=== PATIENT | female | born 1950 | race Caucasian/White ===

== ENCOUNTER → 2016-11-09 | Outpatient (CLI) | payer OTHER ==
[~2016-11-09] MED LIST: ACYCLOVIR800 MG PO; ALBUTEROL2.5 MG/0.5 INH; CALCIUM + D 5001 TAB PO; CARDIZEM CD120 MG PO; CARTIA XT240 MG PO; CIPRO500 MG PO; CIPROFLOXACIN500 MG PO; CLARITIN REDITA10 MG PO; CLARITIN10 MG PO; COUMADIN PO; COUMADIN0.5 M1 PO; COUMADIN5 MG PO; Coumadin2 MG PO; DIFLUCAN150 MG PO; FERROUS FUMARA325 MG PO; FISH OIL 10001000 MG PO; FLAGYL500 MG PO; FLONASE ALLERG9.9 ML NAS; FLONASE0.05 MG/AC NS; FLOVENT 220 M220 MCG INH; FOSAMAX70 MG PO; HYDROCODONE BIT1 T11 PO; K-DUR 1010 MEQ PO; KEFLEX500 MG PO; KLOTRIX10 MEQ PO; LISINOPRIL; LOVENOX150 MG/ML SC; MACROBID100 M1 PO; MAXZIDE 50 MG-71 TA1 PO; MIRALAX17 GM/PACK PO; NORVASC5 MG PO; OCUVITE1 TA1 PO; PERCOCET 325 MG1 TA2 PO; PYRIDIUM200 MG PO; Percocet 325 MG1 TAB PO; SINGULAIR10 MG PO; TRAMADOL HCL50 MG PO; TYLENOL ARTHRI650 MG PO; VENTOLIN H0.09 MG/AC IH; VIACTIV CALCIUM1 CTB PO; VITAMIN B1100 MCG/ML IM; VITAMIN B11000 MCG/M IM; VITAMIN D1000 IU PO; ZANTAC150 MG PO; Zestril,Prinivil5 MG PO; [UNRECOGNIZED DRUG - OTHER]
--- NOTE | ~2016-11-09 | PR ---
[place], [place] PROGRESS NOTE NAME: PETE BAUTISTA [facility] #: [id number] UNIT #: [id number] ROOM: DOCTOR: CHANELL THOMPSON M.D. BIRTHDATE: [birth year] DOS: 11/09/2016 CHIEF COMPLAINT: Followup of abdominal wound. HISTORY OF PRESENT ILLNESS: The location is the abdominal wall. It is superficial and related to repeated surgery, morbid obesity, diabetes and pressure related. The wound has been recurrent, it had healed fairly quickly in the past and has reopens since August. She came to the wound clinic just last week for the first time for this new ulceration. The wound was debrided last week and she was placed in a collagen dressing as well as foam. She says she is not having any complaints. She thinks that the wound is healing quite nicely. She does notice that if the wound is not covered, she does tend to pick at it even without realizing it. She has several other places along her abdomen that she does frequently pick out, which lead to chronic wounds. PHYSICAL EXAMINATION: She is afebrile, pulse is 76, respirations 18, blood pressure is 138/78. The wound is measuring 0.4 x 0.2 x 0.1. There is a lot of healing, a lot of new epithelial tissue. There is no visible necrotic tissue, no purulence or tenderness or cellulitis noted. Debridement was not done today. ASSESSMENT AND PLAN: Recurrent abdominal wound secondary to multiple abdominal surgeries. The wound is healing quite nicely. At this point, I would continue with a collagen dressing and a foam over this so to protect it and have her follow up in 1 week. CHANELL THOMPSON MD CM:ELENA 07 [phone] CHANELL THOMPSON M.D. 11/09/161956 interface
== END ==
LOC: WOUNDCARE 01:21
DX: E11.622 Type 2 diabetes mellitus with other skin ulcer (principal); L98.491 Non-pressure chronic ulcer of skin of other sites limited to breakdown of skin; E66.01 Morbid (severe) obesity due to excess calories

== ENCOUNTER → 2016-11-20 | Outpatient (CLI) | payer OTHER ==
[2016-11-20 07:27] LABS: BASO # 0.1 10*3/uL (0.0-0.1); BASO % 0.7 % (0.0-1.0); EOS # 0.3 10*3/uL (0.0-0.4); EOS % 3.8 % (1.0-4.0); HEMATOCRIT 39.3 % (37.0-47.0); HEMOGLOBIN 12.2 g/dl (12.0-16.0); LYMPH # 0.8 10*3/uL (1.3-4.4); MEAN CELL VOLUME 90.1 fl (81.0-99.0); MEAN PLATELET VOLUME 11.9 fl (9.6-12.3); MONO # 0.7 10*3/uL (0.1-1.0); MONO % 10.1 % (3.0-9.0); NEUT # 5.4 10*3/uL (2.3-7.9); PLATELET COUNT AUTOMATED 218 10*3/uL (130-400); RED BLOOD COUNT 4.36 10*6/uL (4.10-5.10); RED CELL DISTRI WIDTH 14.6 % (0-14.5); WHITE BLOOD COUNT 7.4 10*3/uL (4.8-10.8)
[2016-11-20 07:56] LABS: ALBUMIN 3.2 gm/dl (3.1-4.5); ALKALINE PHOSPHATASE 66 U/L (45-117); BILIRUBIN, TOTAL 0.5 mg/dl (0.2-1.0); BUN 20 mg/dl (7-24); CARBON DIOXIDE 34 mmol/L (21-32); CHLORIDE 103 mmol/L (98-107); CHOLESTEROL 98 mg/dL (<200); EST GLOM FILT AFRICAN AMERICAN > 60 ml/min; GLUCOSE 95 mg/dL (65-99); HDL CHOLESTEROL 67 mg/dl (40-60); LDL CHOLESTEROL 19 mg/dL (9-159); POTASSIUM 3.8 mmol/L (3.5-5.1); SGOT/AST 17 IU/L (3-35); SGPT/ALT 15 U/L (12-78); SODIUM 144 mmol/L (136-145); TOTAL PROTEIN 6.7 gm/dL (6.4-8.2); TRIGLYCERIDES 61 mg/dl (<150); VLDL CHOLESTEROL 12 mg/dL (6-40)
[2016-11-20 08:09] LABS: INTERNATIONAL NORM RATIO 1.8 (2.0-3.5); PROTHROMBIN TIME 19.2 SECONDS (9.0-12.4)
== END | disposition home or self-care (01) ==
LOC: LAB 06:48
PROVIDERS: Nurse Practitioner Family
DX: I10 Essential (primary) hypertension (principal); M81.8 Other osteoporosis without current pathological fracture; Z79.01 Long term (current) use of anticoagulants; E78.4 Other hyperlipidemia; R73.01 Impaired fasting glucose

== ENCOUNTER → 2016-11-21 | Outpatient (CLI) | payer OTHER ==
[2016-11-21 08:59] LABS: BILIRUBIN NEGATIVE (NEGATIVE); BLOOD NEGATIVE (NEGATIVE); CLARITY CLEAR (CLEAR); COLOR YELLOW (YELLOW); GLUCOSE NEGATIVE (NEGATIVE); KETONE NEGATIVE (NEGATIVE); LEUKO ESTERASE 1+ (NEGATIVE); NITRITE NEGATIVE (NEGATIVE); PROTEIN NEGATIVE (NEGATIVE)
[2016-11-21 09:16] LABS: BACTERIA TRACE
== END | disposition home or self-care (01) ==
LOC: LAB 08:44
PROVIDERS: Nurse Practitioner Family
DX: I10 Essential (primary) hypertension (principal); M81.8 Other osteoporosis without current pathological fracture; E78.4 Other hyperlipidemia; R73.01 Impaired fasting glucose; Z79.01 Long term (current) use of anticoagulants

== ENCOUNTER → 2016-11-29 | Outpatient (CLI) | payer OTHER ==
--- NOTE | ~2016-11-29 | EKG ---
[place], [place] ELECTROCARDIOGRAM REPORT NAME: PETE BAUTISTA UNIT #: [id number] ROOM: DOCTOR: VINI CONNOR MD BIRTHDATE: [birth year] DOS: 11/29/2016 TIME: 0922 hours. Atrial fibrillation with ventricular rate of 73 beats per minute. Low voltage in limb leads. Poor R-wave progression is present that is suggestive of an old anteroseptal myocardial infraction. An abnormal ECG. No previous tracing is available for comparison. VINI CONNOR MD CM:EKGRPT:ELECTROCARDIOGRAM REPORT 24 VINI CONNOR MD
== END ==
LOC: CARD 09:14
DX: I10 Essential (primary) hypertension (principal); I48.91 Unspecified atrial fibrillation

== ENCOUNTER → 2017-02-12 | Outpatient (CLI) | payer OTHER ==
[2017-02-12 07:19] LABS: BASO % 0.5 % (0.0-1.0); EOS # 0.2 10*3/uL (0.0-0.4); EOS % 2.5 % (1.0-4.0); HEMOGLOBIN 11.9 g/dl (12.0-16.0); LYMPH # 0.7 10*3/uL (1.3-4.4); LYMPH % 8.5 % (27.0-41.0); MEAN CELL VOLUME 89.6 fl (81.0-99.0); MEAN CORPUSCULAR HGB 28.1 pg (27.0-31.0); MEAN CORPUSCULAR HGB CONC 31.3 g/dl (33.0-37.0); MEAN PLATELET VOLUME 11.8 fl (9.6-12.3); MONO # 0.9 10*3/uL (0.1-1.0); MONO % 10.5 % (3.0-9.0); NEUT # 6.5 10*3/uL (2.3-7.9); NEUT % 77.8 % (47.0-73.0); PLATELET COUNT AUTOMATED 216 10*3/uL (130-400); RED BLOOD COUNT 4.24 10*6/uL (4.10-5.10); WHITE BLOOD COUNT 8.4 10*3/uL (4.8-10.8)
[2017-02-12 07:58] LABS: ALBUMIN 3.4 gm/dl (3.1-4.5); ALKALINE PHOSPHATASE 71 U/L (45-117); BILIRUBIN, TOTAL 0.7 mg/dl (0.2-1.0); BUN 15 mg/dl (7-24); CARBON DIOXIDE 34 mmol/L (21-32); CHLORIDE 104 mmol/L (98-107); CHOLESTEROL 101 mg/dL (<200); EST GLOM FILT AFRICAN AMERICAN > 60 ml/min; GLUCOSE 95 mg/dL (65-99); HDL CHOLESTEROL 63 mg/dl (40-60); LDL CHOLESTEROL 22 mg/dL (9-159); POTASSIUM 3.5 mmol/L (3.5-5.1); SGOT/AST 19 IU/L (3-35); SGPT/ALT 16 U/L (12-78); SODIUM 141 mmol/L (136-145); TOTAL PROTEIN 6.9 gm/dL (6.4-8.2); TRIGLYCERIDES 81 mg/dl (<150); VLDL CHOLESTEROL 16 mg/dL (6-40)
[2017-02-12 08:04] LABS: HEMOGLOBIN A1c 5.9 % (4.8-5.6)
== END ==
LOC: LAB 06:48
PROVIDERS: Nurse Practitioner Family
DX: E11.9 Type 2 diabetes mellitus without complications (principal); E55.9 Vitamin D deficiency, unspecified; I10 Essential (primary) hypertension; E78.5 Hyperlipidemia, unspecified

== ENCOUNTER → 2017-04-18 | Outpatient (CLI) | payer OTHER ==
--- NOTE | ~2017-04-18 | PR ---
[place], [place] PROGRESS NOTE NAME: PETE BAUTISTA [facility] #: [id number] UNIT #: [id number] ROOM: DOCTOR: DONNA JuanCHANELL BIRTHDATE: [birth year] DOS: 04/18/2017 This is a new patient evaluation. The patient comes in as a new patient for wound care. She has been seen here in the clinic before. I have seen her on a few separate occasions where she has come for abdominal wound. CHIEF COMPLAINT: She comes in for recurrent abdominal wounds as chief complaint presently. HISTORY OF PRESENT ILLNESS: She is a 67-year-old female with a history of morbid obesity who had a gastric bypass surgery in 2002. She is a type 2 diabetic. She had an abdominal hernia; she had a repair of that back in 2010 and postoperatively had postoperative wound that just did not heal. She has been seen in the wound clinic by Dr. Lane and had reexploration of the area, mesh removal and eventually had removal of a large area of infected mesh back in 2012 by a plastic surgeon, Dr. Wilson, from [facility]. In any case, I have seen her before; the last time I saw her was back in October, where she had an abdominal wound that was on a surgical scar that also appeared to be somewhat pressure related. The wound did heal fairly quickly, but apparently has reopened. She says she has had it for a couple of months now. She has been using some Neosporin on it, but it has not gotten any better. PAST MEDICAL HISTORY: Significant for atrial fibrillation, on chronic Coumadin therapy; hypertension; morbid obesity, close to 400 pounds; type 2 diabetes, diet controlled; GERD; osteoarthritis; gout; osteoporosis; COPD; emphysema; sleep apnea, she is on a BiPAP machine. PAST SURGICAL HISTORY: She is status post tummy tuck repair, hernia repair, gastric bypass, and cholecystectomy. FAMILY HISTORY: Positive for cancer in her father, hypertension in her mother, lung disease in her mother, diabetes in her mother, seizure disorder in her mother, heart disease in her mother, and stroke in her maternal grandparents. SOCIAL HISTORY: She is a former smoker. She is . She does not drink alcohol. CURRENT MEDICATIONS: Coumadin 4 mg daily, loratadine 10 mg daily, Zocor 10 daily, Ventolin HFA 90 mcg inhalation daily, Symbicort 160 mcg/4.5 mcg daily, Cartia XT 240 daily, Norvasc 5 daily, calcium 500 plus D two tablets twice a day, ranitidine 150 mg twice a day, Ferrex 150 mg daily, Singulair 10 mg daily, Ocuvite multivitamin daily, low-dose aspirin 81 daily, potassium chloride 10 mEq daily, triamterene hydrochlorothiazide 75/50 one tablet daily, and vitamin D3 2000 units daily. ALLERGIES: OXYCODONE. REVIEW OF SYSTEMS: She denies any fevers or chills. There is minimal drainage [place], [place] PROGRESS NOTE NAME: PETE BAUTISTA UNIT #: [id number] ROOM: DOCTOR: CHANELL THOMPSON M.D. BIRTHDATE: [birth year] with the wounds. She is not really keeping up covered. She does state that one of the wounds appears to cause discomfort and seems to be rubbing against her underwear at night. She has a lot of irritation around the area of the abdomen where her umbilicus would be and has scratched it in the middle of the night and it bleeds during the day, sometimes after she has been scratching it unintentionally. She denies any chest pain. She has chronic dyspnea on exertion; she sees and follows up with Pulmonology for this. No nausea or vomiting. She has been told her sugars are controlled. She did say her appetite has not been as good lately secondary to the heat. She denies any blood in her stools. She does complain of some groin discomfort. She says that she has noticed this since the wound has been open for a couple of months now. She has 2 areas that are open; one in the middle of the abdomen and is on a surgical scar and the other one is on the left lower quadrant under the pannus formation. OBJECTIVE: VITAL SIGNS: Stable. Temperature 98.3, pulse of 76, respirations 18, blood pressure is 134/68. GENERAL: This is a morbidly obese female who appears older than her stated age, chronically ill and debilitated, in no acute distress. HEENT: Her oropharynx is clear. Extraocular movements are intact. Sclerae are anicteric. NECK: There is no JVD. LUNGS: Clear to auscultation. CARDIOVASCULAR: S1, S2 irregularly irregular. ABDOMEN: Morbidly obese. She has 2 open ulcers located on the abdomen; one is located in the midline and it is on a surgical scar, the wound edges are fibrotic, it is measuring 0.5 x 1.5 x 0.1. This wound seems to be a recurrent wound. There is minimal fibrin slough present. It does not appear to be acutely infected. Medial to that, there is an area of excoriation from chronic pruritus, looks like the patient has been scratching and that is noted. On the left lower quadrant, underneath the pannus formation, is a small ulcer, which is measuring 0.5 x 0.5 x 0.1. There is minimal fibrin slough present. The surrounding area has the appearance of a chronic pressure ulcer. She complains of groin pain; I palpated the groin area and I do not appreciate any lymph nodes. I can palpate the femoral pulse. There is no cellulitis there. I do not see any wound in the groin area at this time. Debridement was done of both of these wounds. The tissue removed was fibrin slough and subcutaneous tissue. There was a moderate amount of bleeding that was controlled with pressure. The patient tolerated the debridements well. The post-debridement measurements on the midline abdominal wound is 0.5 x 1.5 x 0.2 in depth. The other wound on the left lower quadrant is 0.6 x 0.5 x 0.1. The patient tolerated the debridement well. Instrument used was a curette. ASSESSMENT AND PLAN: Recurrent ulcerations of the abdominal wall. I believe that these are pressure-related ulcers. At this point, there is one that is along the surgical scar as well, which is a recurrent ulceration. We will use a collagen silver dressing for now and cover with the foam. This, hopefully, will pad and protect the area a little bit more from rubbing and excoriation. I [place], [place] PROGRESS NOTE [facility]: [facility] [id number] UNIT #: [id number] ROOM: DOCTOR: CHANELL THOMPSON M.D. BIRTHDATE: [birth year] would like to use Calazime on the area medial to that where she has been scratching. We will have check her blood work; she has not had blood work for a couple of months now. I did explain that if the wound does not seem to be healing, we may want to biopsy it, but for now, this has healed before, so we will continue wound care and see how she responds. Collagen dressing will be recommended. Follow up in 1 week. CHANELL THOMPSON MD CM:ELENA [phone] CHANELL THOMPSON M.D. 04/18/17 1801 interface
== END ==
LOC: WOUNDCARE 02:57
DX: E11.622 Type 2 diabetes mellitus with other skin ulcer (principal); L98.491 Non-pressure chronic ulcer of skin of other sites limited to breakdown of skin; E66.01 Morbid (severe) obesity due to excess calories; I10 Essential (primary) hypertension; K21.9 Gastro-esophageal reflux disease without esophagitis; I48.91 Unspecified atrial fibrillation; M19.90 Unspecified osteoarthritis, unspecified site; M81.0 Age-related osteoporosis without current pathological fracture; J43.9 Emphysema, unspecified; Z79.01 Long term (current) use of anticoagulants; Z87.891 Personal history of nicotine dependence

== ENCOUNTER → 2017-04-19 | Outpatient (CLI) | payer OTHER ==
[2017-04-19 07:21] LABS: BASO # 0.1 10*3/uL (0.0-0.1); BASO % 0.7 % (0.0-1.0); EOS # 0.3 10*3/uL (0.0-0.4); HEMATOCRIT 38.7 % (37.0-47.0); LYMPH # 1.1 10*3/uL (1.3-4.4); LYMPH % 15.3 % (27.0-41.0); MEAN CELL VOLUME 88.2 fl (81.0-99.0); MEAN CORPUSCULAR HGB 27.3 pg (27.0-31.0); MEAN PLATELET VOLUME 11.9 fl (9.6-12.3); MONO # 0.8 10*3/uL (0.1-1.0); MONO % 11.3 % (3.0-9.0); NEUT % 68.3 % (47.0-73.0); PLATELET COUNT AUTOMATED 206 10*3/uL (130-400); RED BLOOD COUNT 4.39 10*6/uL (4.10-5.10); RED CELL DISTRI WIDTH 14.7 % (0-14.5); WHITE BLOOD COUNT 7.3 10*3/uL (4.8-10.8)
[2017-04-19 07:42] LABS: ALBUMIN 3.4 gm/dl (3.1-4.5); ALKALINE PHOSPHATASE 80 U/L (45-117); BILIRUBIN, TOTAL 0.4 mg/dl (0.2-1.0); BUN 19 mg/dl (7-24); CARBON DIOXIDE 33 mmol/L (21-32); CHLORIDE 103 mmol/L (98-107); EST GLOM FILT AFRICAN AMERICAN > 60 ml/min; GLUCOSE 86 mg/dL (65-99); POTASSIUM 3.5 mmol/L (3.5-5.1); PREALBUMIN 14 mg/dl (20-40); SGOT/AST 18 IU/L (3-35); SGPT/ALT 16 U/L (12-78); SODIUM 143 mmol/L (136-145)
[2017-04-19 07:49] LABS: HEMOGLOBIN A1c 5.9 % (4.8-5.6)
== END | disposition home or self-care (01) ==
LOC: LAB 06:51
DX: K25.9 Gastric ulcer, unspecified as acute or chronic, without hemorrhage or perforation (principal); Z79.899 Other long term (current) drug therapy

== ENCOUNTER → 2017-04-25 | Outpatient (CLI) | payer OTHER ==
--- NOTE | ~2017-04-25 | PR ---
[place], [place] PROGRESS NOTE NAME: PETE BAUTISTA UNIT #: [id number] ROOM: DOCTOR: DONNA JuanCHANELL BIRTHDATE: [birth year] DOS: 04/25/2017 CHIEF COMPLAINT: Followup of abdominal wound. HISTORY OF PRESENT ILLNESS: A 67-year-old female with a history of recurrent abdominal wounds that appear to be pressure related as well as postoperatively related. She has been coming to the wound clinic for 1 week now and the wounds are looking really good. She has no specific complaints other than she does not have enough money to afford the dressings that we had recommended. So she will need us to recommend a different type of dressing for her. OBJECTIVE: Her vital signs are as follows, afebrile, pulse is 70, respirations 18, and blood pressure is 108/68. The wound in the midline is healed but epithelialized completely. The wound on the left lower quadrant has improved quite a bit and is measuring much smaller 0.3 x 0.3 x 0.1. It is partial thickness. There is a minimal necrotic tissue present. Selective debridement was done. The tissue was removed with fibrin and slough only. Curette was utilized. Cetacaine spray was used for topical anesthesia. Post-debridement measurements are unchanged. There was minimal bleeding that was controlled with pressure. The patient tolerated the procedure well. Her blood work was done and we reviewed it with the patient. Her CBC was within normal limits. Glucose was 123. Hemoglobin A1c was good at 5.9. LFTs were normal. Her prealbumin was slightly low at 14. I did discuss considering to increase her protein intake, perhaps Boost or Ensure once a day would be helpful. She can discuss this with her primary care physician. We will make sure that PCP gets the results. ASSESSMENT AND PLAN: Recurrent abdominal wounds secondary to pressure. They are healing well. We will continue with collagen dressing and foam for today. However, when she needs to change it on her own, she will need to use either 2 x 2s and tape or 2 x 2 with Band-Aid perhaps waterproof Band-Aid would be a good to keep the dressing in place. Followup in one week. [place], [place] PROGRESS NOTE NAME: PETE BAUTISTA UNIT #: [id number] ROOM: DOCTOR: CHANELL THOMPSON M.D. BIRTHDATE: [birth year] CHANELL THOMPSON MD CM:PNROBERT 5 [phone] CHANELL THOMPSON M.D. 04/25/17924 interface
== END ==
LOC: WOUNDCARE 00:16
DX: L89.893 Pressure ulcer of other site, stage 3 (principal); E66.9 Obesity, unspecified; I48.91 Unspecified atrial fibrillation; E11.9 Type 2 diabetes mellitus without complications

== ENCOUNTER → 2017-05-02 | Outpatient (CLI) | payer OTHER | LOC: WOUNDCARE 03:27 | DX: E11.622 Type 2 diabetes mellitus with other skin ulcer (principal); L89.893 Pressure ulcer of other site, stage 3; E66.01 Morbid (severe) obesity due to excess calories ==

== ENCOUNTER 2017-05-17 09:24 | Inpatient (IN) | payer OTHER ==
[~2017-05-17] VITALS: Ht 168 cm; Wt 146.5 kg
[~2017-05-17 09:24] MED LIST changes: -ASPIRIN CHEWABL81 MG PO; -DILTIAZEM HYDR180 M2 PO; -LASIX40 MG PO; -LEVAQUIN500 M2 PO; -METOPROLOL TART50 M1 PO; -NATURE'S BLEN2000 IU PO; -OYSTER SHELL CA1 T17 PO; -PREDNISONE50 MG PO; -SIMVASTATIN10 MG PO; -SINGULAIR10 M1 PO; -SYMBICORT1 AE1 INH
[2017-05-17 09:29] VITALS: BP 131/69
[2017-05-17] MEDS ORDERED: SIMVASTATIN10 MG PO (09:34)
[2017-05-17] MEDS ORDERED: ASPIRIN CHEWABL81 MG PO (09:35)
[2017-05-17 10:10] VITALS: BP 129/52
[2017-05-17 10:15] LABS: BASO % 0.3 % (0.0-1.0); EOS # 0.2 10*3/uL (0.0-0.4); EOS % 1.5 % (1.0-4.0); HEMOGLOBIN 11.9 g/dl (12.0-16.0); IG # 0.1 10*3/uL (0.0-0.1); LYMPH # 0.6 10*3/uL (1.3-4.4); LYMPH % 4.8 % (27.0-41.0); MEAN CELL VOLUME 88.2 fl (81.0-99.0); MEAN CORPUSCULAR HGB 27.6 pg (27.0-31.0); MEAN CORPUSCULAR HGB CONC 31.3 g/dl (33.0-37.0); MEAN PLATELET VOLUME 11.9 fl (9.6-12.3); MONO # 1.2 10*3/uL (0.1-1.0); NEUT # 9.9 10*3/uL (2.3-7.9); PLATELET COUNT AUTOMATED 226 10*3/uL (130-400); RED BLOOD COUNT 4.31 10*6/uL (4.10-5.10)
[2017-05-17 10:22] LABS: INTERNATIONAL NORM RATIO 2.4 (2.0-3.5); PROTHROMBIN TIME 27.3 SECONDS (9.0-12.4)
[2017-05-17 10:32] LABS: ALBUMIN 2.9 gm/dl (3.1-4.5); ALKALINE PHOSPHATASE 68 U/L (45-117); BILIRUBIN, TOTAL 0.7 mg/dl (0.2-1.0); BUN 21 mg/dl (7-24); CARBON DIOXIDE 28 mmol/L (21-32); CHLORIDE 99 mmol/L (98-107); EST GLOM FILT AFRICAN AMERICAN > 60 ml/min; GLUCOSE 123 mg/dL (65-99); POTASSIUM 2.9 mmol/L (3.5-5.1); SGOT/AST 14 IU/L (3-35); SGPT/ALT 13 U/L (12-78); SODIUM 138 mmol/L (136-145); TOTAL PROTEIN 7.2 gm/dL (6.4-8.2)
[2017-05-17 10:43] LABS: TROPONIN I < 0.015 ng/ml (<0.045)
[2017-05-17 10:47] LABS: BILIRUBIN NEGATIVE (NEGATIVE); BLOOD TRACE-INTACT (NEGATIVE); CLARITY CLOUDY (CLEAR); COLOR YELLOW (YELLOW); GLUCOSE NEGATIVE (NEGATIVE); KETONE NEGATIVE (NEGATIVE); LEUKO ESTERASE 3+ (NEGATIVE); NITRITE POSITIVE (NEGATIVE); PH 5.5 (5.0-9.0); PROTEIN NEGATIVE (NEGATIVE)
[2017-05-17 10:58] LABS: BACTERIA 4+; EPITHELIAL CELLS 15-20; URINE REFLEX COMMENT YES (NO); WBC TNTC wbc/hpf (0-5)
[2017-05-17 12:40] VITALS: BP 124/61
[2017-05-17 13:00] VITALS: BP 124/62
[2017-05-17] MEDS ORDERED: SYMBICORT1 AE1 INH (13:02)
[2017-05-17] MEDS ORDERED: SINGULAIR10 M1 PO (13:02)
[2017-05-17 16:00] VITALS: BP 135/72
[2017-05-17 18:11] LABS: CKMB < 0.5 ng/ml (0.5-3.6); CPK 40 U/L (26-192)
[2017-05-17 20:48] VITALS: BP 133/76
[2017-05-18] VITALS: BP 133/68
[2017-05-18 00:42] LABS: CPK 40 U/L (26-192)
[2017-05-18 00:44] LABS: CKMB < 0.5 ng/ml (0.5-3.6)
[2017-05-18 06:16] LABS: HEMATOCRIT 34.9 % (37.0-47.0); MEAN CELL VOLUME 86.4 fl (81.0-99.0); MEAN CORPUSCULAR HGB 27.2 pg (27.0-31.0); MEAN CORPUSCULAR HGB CONC 31.5 g/dl (33.0-37.0); MEAN PLATELET VOLUME 12.4 fl (9.6-12.3); PLATELET COUNT AUTOMATED 217 10*3/uL (130-400); RED BLOOD COUNT 4.04 10*6/uL (4.10-5.10); RED CELL DISTRI WIDTH 14.7 % (0-14.5); WHITE BLOOD COUNT 12.8 10*3/uL (4.8-10.8)
[2017-05-18 06:37] LABS: LYMPHOCYTE # 0.3 10*3/uL (1.3-4.4); MONOCYTE # 0.8 10*3/uL (0.1-1.0); NEUTROPHIL # 11.8 10*3/uL (2.3-7.9); NEUTROPHILS 92 % (47-73); TOTAL CELLS COUNTED 100 #CELLS
[2017-05-18 06:38] LABS: PLATELET SUFFICIENCY NORMAL (NORMAL)
[2017-05-18 06:40] LABS: HEMOGLOBIN A1c 6.2 % (4.8-5.6); INTERNATIONAL NORM RATIO 2.8 (2.0-3.5); PROTHROMBIN TIME 31.3 SECONDS (9.0-12.4)
[2017-05-18 06:42] LABS: BUN 22 mg/dl (7-24); CARBON DIOXIDE 26 mmol/L (21-32); CHLORIDE 98 mmol/L (98-107); EST GLOM FILT AFRICAN AMERICAN > 60 ml/min; GLUCOSE 211 mg/dL (65-99); MAGNESIUM 1.6 mg/dL (1.5-2.1); POTASSIUM 3.4 mmol/L (3.5-5.1); SODIUM 137 mmol/L (136-145)
[2017-05-18 06:47] LABS: CPK 39 U/L (26-192)
[2017-05-18 06:49] LABS: CKMB < 0.5 ng/ml (0.5-3.6)
[2017-05-18 06:51] LABS: VITAMIN D, 25-HYDROXY 33.7 ng/mL (30-100)
[2017-05-18 06:52] LABS: FOLIC ACID > 24.00 ng/mL (>5.38)
[2017-05-18 06:54] LABS: CHOLESTEROL 93 mg/dL (<200); FREE T4 1.49 ng/dl (0.76-1.46); HDL CHOLESTEROL 50 mg/dl (40-60); LDL CHOLESTEROL 32 mg/dL (9-159); PHOSPHOROUS 3.1 mg/dL (2.5-4.9); TRIGLYCERIDES 55 mg/dl (<150); VLDL CHOLESTEROL 11 mg/dL (6-40)
[2017-05-18 08:00] VITALS: BP 142/70
[2017-05-18 12:00] VITALS: BP 137/72
[2017-05-18 16:00] VITALS: BP 136/67
[2017-05-18 20:00] VITALS: BP 131/66
[2017-05-19] VITALS: BP 114/63
[2017-05-19] MEDS ORDERED: OYSTER SHELL CA1 T17 PO (01:12)
[2017-05-19] MEDS ORDERED: NATURE'S BLEN2000 IU PO (01:15)
[2017-05-19 05:58] LABS: HEMATOCRIT 34.7 % (37.0-47.0); MEAN CELL VOLUME 87.4 fl (81.0-99.0); MEAN CORPUSCULAR HGB 27.7 pg (27.0-31.0); MEAN CORPUSCULAR HGB CONC 31.7 g/dl (33.0-37.0); MEAN PLATELET VOLUME 11.9 fl (9.6-12.3); PLATELET COUNT AUTOMATED 242 10*3/uL (130-400); RED BLOOD COUNT 3.97 10*6/uL (4.10-5.10); RED CELL DISTRI WIDTH 14.9 % (0-14.5); WHITE BLOOD COUNT 16.7 10*3/uL (4.8-10.8)
[2017-05-19 06:31] LABS: BUN 27 mg/dl (7-24); CARBON DIOXIDE 30 mmol/L (21-32); CHLORIDE 99 mmol/L (98-107); EST GLOM FILT AFRICAN AMERICAN > 60 ml/min; GLUCOSE 211 mg/dL (65-99); POTASSIUM 3.7 mmol/L (3.5-5.1); SODIUM 138 mmol/L (136-145)
[2017-05-19 06:36] LABS: INTERNATIONAL NORM RATIO 2.9 (2.0-3.5); LYMPHOCYTE # 0.3 10*3/uL (1.3-4.4); MONOCYTE # 0.5 10*3/uL (0.1-1.0); NEUTROPHIL # 15.9 10*3/uL (2.3-7.9); NEUTROPHILS 95 % (47-73); PLATELET SUFFICIENCY NORMAL (NORMAL); PROTHROMBIN TIME 32.7 SECONDS (9.0-12.4); TOTAL CELLS COUNTED 100 #CELLS
[2017-05-19 08:00] VITALS: BP 118/60
[2017-05-19 12:00] VITALS: BP 116/72
[2017-05-19 16:00] VITALS: BP 123/67
[2017-05-19 20:00] VITALS: BP 124/74
[2017-05-20] VITALS: BP 117/69
[2017-05-20 05:53] LABS: BASO % 0.1 % (0.0-1.0); HEMATOCRIT 35.5 % (37.0-47.0); HEMOGLOBIN 11.2 g/dl (12.0-16.0); IG # 0.2 10*3/uL (0.0-0.1); LYMPH # 0.5 10*3/uL (1.3-4.4); LYMPH % 3.4 % (27.0-41.0); MEAN CELL VOLUME 87.4 fl (81.0-99.0); MEAN CORPUSCULAR HGB 27.6 pg (27.0-31.0); MEAN CORPUSCULAR HGB CONC 31.5 g/dl (33.0-37.0); MEAN PLATELET VOLUME 11.9 fl (9.6-12.3); MONO # 0.8 10*3/uL (0.1-1.0); MONO % 5.5 % (3.0-9.0); NEUT # 13.3 10*3/uL (2.3-7.9); NEUT % 89.8 % (47.0-73.0); PLATELET COUNT AUTOMATED 277 10*3/uL (130-400); RED BLOOD COUNT 4.06 10*6/uL (4.10-5.10); RED CELL DISTRI WIDTH 14.6 % (0-14.5); WHITE BLOOD COUNT 14.8 10*3/uL (4.8-10.8)
[2017-05-20 06:13] LABS: BUN 31 mg/dl (7-24); CARBON DIOXIDE 33 mmol/L (21-32); CHLORIDE 99 mmol/L (98-107); EST GLOM FILT AFRICAN AMERICAN > 60 ml/min; GLUCOSE 197 mg/dL (65-99); POTASSIUM 3.9 mmol/L (3.5-5.1); SODIUM 141 mmol/L (136-145)
[2017-05-20 08:00] VITALS: BP 150/78
[2017-05-20] MEDS ORDERED: LASIX40 MG PO (10:15)
[2017-05-20] MEDS ORDERED: LEVAQUIN500 M2 PO (10:16)
[2017-05-20] MEDS ORDERED: PREDNISONE50 MG PO (10:16)
[2017-05-20] MEDS ORDERED: DILTIAZEM HYDR180 M2 PO (11:09)
[2017-05-20] MEDS ORDERED: METOPROLOL TART50 M1 PO (11:09)
== END 2017-05-20 11:55 | disposition home or self-care (01) | DRG 871 ==
LOC: ED 09:24 → EDHOLD 11:55 → 5E 11:55
PROVIDERS: Family Medicine; Internal Medicine; Registered Nurse
DX: A41.9 Sepsis, unspecified organism (principal); J96.01 Acute respiratory failure with hypoxia; I11.0 Hypertensive heart disease with heart failure; J18.1 Lobar pneumonia, unspecified organism; J18.9 Pneumonia, unspecified organism; D68.59 Other primary thrombophilia; E11.65 Type 2 diabetes mellitus with hyperglycemia; E44.0 Moderate protein-calorie malnutrition; I50.9 Heart failure, unspecified; I48.1 Persistent atrial fibrillation; L03.90 Cellulitis, unspecified; Z68.43 Body mass index [BMI] 50.0-59.9, adult; J44.1 Chronic obstructive pulmonary disease with (acute) exacerbation; J44.0 Chronic obstructive pulmonary disease with (acute) lower respiratory infection; N39.0 Urinary tract infection, site not specified; R65.20 Severe sepsis without septic shock; Z88.5 Allergy status to narcotic agent; G47.33 Obstructive sleep apnea (adult) (pediatric); E78.5 Hyperlipidemia, unspecified; Z90.49 Acquired absence of other specified parts of digestive tract; Z87.891 Personal history of nicotine dependence; Z80.8 Family history of malignant neoplasm of other organs or systems; Z83.3 Family history of diabetes mellitus; Z82.49 Family history of ischemic heart disease and other diseases of the circulatory system; E87.6 Hypokalemia; D72.810 Lymphocytopenia; Z79.899 Other long term (current) drug therapy; Z79.01 Long term (current) use of anticoagulants

== ENCOUNTER → 2017-05-17 | Outpatient (CLI) | payer OTHER ==
[~2017-05-17] MED LIST changes: +ASPIRIN CHEWABL81 MG PO; +COUMADIN4 M2 PO; -COUMADIN5 MG PO; +DILTIAZEM HYDR180 M2 PO; +LASIX40 MG PO; +LEVAQUIN500 M2 PO; +METOPROLOL TART50 M1 PO; +NATURE'S BLEN2000 IU PO; +OYSTER SHELL CA1 T17 PO; +PREDNISONE50 MG PO; +SIMVASTATIN10 MG PO; +SINGULAIR10 M1 PO; +SYMBICORT1 AE1 INH
== END ==
LOC: WOUNDCARE 02:34
DX: S81.802A Unspecified open wound, left lower leg, initial encounter (principal); I73.9 Peripheral vascular disease, unspecified; I87.2 Venous insufficiency (chronic) (peripheral); X58.XXXA Exposure to other specified factors, initial encounter; Y93.89 Activity, other specified; Y92.89 Other specified places as the place of occurrence of the external cause; Y99.8 Other external cause status

== ENCOUNTER 2017-07-05 13:33 | Inpatient (IN) | payer OTHER ==
[~2017-07-05] VITALS: Ht 165.1 cm; Wt 137.9 kg
--- NOTE | ~2017-07-05 | PR ---
[place], [place] PROGRESS NOTE NAME: PETE BAUTISTA UNIT #: [id number] ROOM: 422 DOCTOR: EARL SPEARS MD BIRTHDATE: [birth year] DOS: 07/11/2017 SUBJECTIVE: The patient was seen and examined independently, physical examination was performed, labs were reviewed, and history was confirmed. The decision made for this patient were personally done for today's visit as well. The note which was done by the medical services manager was approved. The patient underwent thoracentesis yesterday of the left side with 800 mL of pleural fluid was removed. The procedure was performed by Radiology Services with the ultrasound guidance. The patient remains afebrile, noted improvement in respiratory symptom. OBJECTIVE: VITAL SIGNS: The respiratory rate was noted normal. Heart rate was normal. Blood pressure 124/64. The oxygen saturation for this patient was noted as 95% on 3 L nasal cannula this morning. LUNGS: Noted improvement in the aeration of lungs with small crackles in the right lower lung. ABDOMEN: Soft and obese. LABORATORY DATA: INR today was noted at 1.2. Analysis of pleural fluid was suggested. WBC count 112,000 with the various differentials. The glucose noted at 145, total protein of 4.2, LDH 128, cholesterol 65, albumin 2.2. Based on the cholesterol for this patient, protein and the albumin criteria the pleural fluid has been noted in an exudative effusion. INR was noted at 1.2 this morning. Cytology of pleural fluid for the patient was noted as benign. Culture preliminary was noted without any bacteria growth. IMPRESSION: 1. The patient with acute pneumonia involving the left lower lobe with an exudative pleural fluid. The patient is status post thoracentesis without any evidence of malignancy. 2. Acute hypoxic respiratory failure, which has been noted stable. PLAN OF TREATMENT: The patient can be resume her anticoagulation as Coumadin. Other supportive therapy, plan of management to be continued as well. Continuation of antibiotics. Possible discharge to home, consideration in the morning on oral medications. [place], [place] PROGRESS NOTE NAME: PETE BAUTISTA UNIT #: [id number] ROOM: 422 DOCTOR: EARL SPEARS MD BIRTHDATE: [birth year] EARL ESCOBAR MD CM:PNTRANS [id number] EARL GONZALEZ MD 07/12/17 0118 interface
--- NOTE | ~2017-07-05 | CON ---
[place], [place] REPORT OF CONSULTATION NAME: PETE BAUTISTA [facility] #: [id number] UNIT #: [id number] ROOM: 422 DOCTOR: EARL SPEARS MD BIRTHDATE: [birth year] DOS: 07/06/2017 REASON FOR CONSULTATION: Assess the patient with current acute respiratory failure and pneumonia. HISTORY OF PRESENT ILLNESS: A 67-year-old white female seen in my office yesterday. The patient has been noted with symptoms of increased cough, which has been noted in the past few days with progressive worsening. She was also noted with significant severe shortness of breath associated to that in the last 24 hours. The patient came into my office yesterday. She was noted with acute hypoxic respiratory failure and has been admitted to the hospital for the medical management of acute pneumonia with acute respiratory failure. The cough has been noted with some sputum expectoration. The patient was noted some symptoms of chills at home but not sure about the temperature elevation. She denies any symptoms of hemoptysis. Denies any symptoms of chest trauma. The pain was described in the mid lower sternal area, it started in the left side of the chest as well, [id number] without any extubation. REVIEW OF SYSTEMS: CONSTITUTIONAL SYMPTOMS: He does complain of some fatigue. Denies symptoms of fever or chills. EYES: Denies any burning, redness or tenderness. EARS, NOSE, THROAT SYMPTOMS: No sore throat, hoarseness, otalgia, postnasal drainage. CARDIOVASCULAR SYSTEM: Denies anginal pain. Noted edema of the lower extremities. GASTROINTESTINAL: Dysphagia, nausea, vomiting, diarrhea, abdominal pain, hematemesis, melena or hematochezia. SKIN: Denies lesions or rashes. MUSCULOSKELETAL: Denies acute joint pain, redness, or tenderness. SKIN: Some chronic venous stasis changes in lower extremity noted without any abnormal rashes or lesions. CENTRAL NERVOUS SYSTEM: No dizziness, headache, diplopia. MUSCULOSKELETAL: Chronic compression fracture of the thoracic spine for the patient with kyphosis of the spine. CENTRAL NERVOUS SYSTEM: Denies dizziness, headache, diplopia or syncopal episodes. Remaining systems were reviewed for this patient and noted all negative. PAST MEDICAL HISTORY: 1. Uncomplicated severe persistent bronchial asthma. 2. Allergic rhinitis. 3. Essential hypertension. 4. Hypercholesterolemia. 5. Atrial fibrillation. 6. Obstructive sleep apnea disorder, currently treated with BiPAP settings of 20/10. 7. Chronic obesity. 8. She also has a history of congestive heart failure with diastolic dysfunction. PAST SURGICAL HISTORY: [place], [place] REPORT OF CONSULTATION NAME: PETE BAUTISTA UNIT #: [id number] ROOM: 422 DOCTOR: EARL SPEARS MD BIRTHDATE: [birth year] 1. Laparoscopic cholecystectomy. 2. Bariatric surgery with gastric bypass. 3. Incisional abdominal hernia repair. SOCIAL HISTORY: The patient is , has 2 children. Denies history of alcohol use, illicit drug use. Tobacco use noted since age of [age] years old, 2 packs of cigarettes per day until 1999. Denies history of occupation related pulmonary exposure. FAMILY HISTORY: Father at the age 9090 years old of complication related to brain cancer. Mother at 75 years old, complication related to diabetes mellitus. MEDICATIONS: Medications which were noted at the time of admission are, 1. Use of Flonase 1 spray each nostril b.i.d. 2. Norvasc 5 mg daily. 3. Ventolin HFA inhaler p.r.n. use. 4. Vitamin D 500 international units daily. 5. Zyrtec 10 mg p.o. daily. 6. Cardizem CD 240 mg daily. 7. Lasix 40 mg p.o. b.i.d. 8. Iron polysaccharide 150 mg p.o. daily. 9. Metoprolol tartrate 50 mg p.o. b.i.d. 10. Singulair 10 mg daily. 11. Potassium chloride 20 mEq p.o. daily. 12. Ranitidine 150 mg p.o. b.i.d. 13. Simvastatin 10 mg daily. 14. Maxzide 1 p.o. daily. 15. Coumadin 4 mg alternating with 5 mg daily. 16. Advair 250/50 one puff b.i.d. ALLERGIES: The patient drug allergy noted with allergy to the OXYCONTIN. PHYSICAL EXAMINATION: GENERAL: This is a 67-year-old female currently noted awake and alert without any distress. Height of 5 feet 5 inches, weight 113 pounds, BMI 52.1. VITAL SIGNS: Normal temperature, respiratory recorded 16-22, heart rate 66-54, blood pressure 110/74-122/67. Pulse oxygen saturation of the patient on 4 L nasal cannula was 95%, on room air in the hospital was 71%, 85% saturation noted in my office on room air. With 4 L nasal cannula, saturation was noted as 91-93% saturation. HEENT: Srec-jh-swvgjpzn obesity was atraumatic. Eyes nonicterus. NECK: Supple. CARDIOVASCULAR: S1, S2 audible. LUNGS: Decreased breath sounds. Crackles in the left lower lung. There was no wheezing. ABDOMEN: Noted chronic obesity, bowel sounds present. EXTREMITIES: Shows 2+ pitting edema of the lower extremities. Venous stasis pigmentation changes noted. Cranial nerves 2-12 intact. No focal deficits. [place], [place] REPORT OF CONSULTATION NAME: PETE BAUTISTA UNIT #: [id number] ROOM: [facility] DOCTOR[facility] BIR[facility]: [birth year] MUSCULOSKELETAL: No deformities except kyphosis of the thoracic spine. LABORATORY DATA: CBC yesterday, WBC count 10.2, hemoglobin 11.7, hematocrit 37.9, platelet count 330,000. PT/PTT on admission, INR 4.2, PTT 38. CMP on 07/04/2017 was glucose 109. BUN and creatinine were normal. Potassium 3.2. Lactic acid yesterday noted as 1.0. Troponin first set normal. CBC this morning: WBC count normal, hemoglobin 10.7, hematocrit 35.1, platelet count 296,000. BMP of 91 for the patient was noted as normal. INR today noted repeated at 3.5. The chest x-ray in my office shows moderate size consolidation noted in the left lower lobe with associated small pleural fluid was suspected. Findings were noted new as compared past chest x-ray. IMPRESSION: 1. The patient who has been currently admitted to the hospital noted with acute severe hypoxic respiratory failure result of acute bacterial pneumonia with suspicion of pneumococcal infection. 2. Associated pleural fluid was also noted. 3. The patient with chronic morbid obesity. 4. Congestive heart failure with diastolic dysfunction with current edema. 5. Electrolyte imbalance, hypokalemia secondary to diuretic therapy. 6. Obstructive sleep apnea disorder. 7. History of chronic atrial fibrillation. 8. Mild Coumadin toxicity noted on admission, currently improving. PLAN OF TREATMENT: Continue current antibiotics, bronchodilators and oxygen supplementation. Resume her previous home medications. Diuretics have been currently given intravenous, close monitoring of the BUN and creatinine and electrolytes need to be done. Monitoring of the overall respiratory status. Repeat chest x-ray in the morning for the patient to reassess the progression of pneumonia and small pleural fluids secondary to acute pneumonia. Supportive therapy, plan of management and care per usual treatment. Use of the BiPAP from home settings. Monitor culture results of the blood in the sputum. Additional changes in treatment will be done based on the progression of the illness. Thanks for allowing me to participate in the care of this patient. EARL ESCOBAR MD CM:CONSTR:REPORT OF CONSULTATION 1424 07/07/17 0808 interface
--- NOTE | ~2017-07-05 | PR ---
[place], [place] PROGRESS NOTE NAME: PETE BAUTISTA UNIT #: [id number] ROOM: 422 DOCTOR: EARL SPEARS MD BIRTHDATE: [birth year] DOS: 07/10/2017 PULMONARY FOLLOWUP SUBJECTIVE: She denies any symptoms of sputum expectoration with cough. Shortness of breath, the patient has been noted stable. She has been ordered the ultrasound-guided thoracentesis to be done by the radiology services of the left pleural effusion. Chest pain has been decreasing. OBJECTIVE: VITAL SIGNS: Blood pressure of 124/67, respiratory rate 20, heart rate 65, temperature normal on today's vital signs assessment. The pulse oxygen saturation of the patient was noted as 94%, 3.5 liters nasal cannula. HEENT: Examination shows [id number]-vxnwtqrv obesity. NECK: Supple. CARDIOVASCULAR: S1, S2 audible. LUNGS: Decreased breath sounds in the left lower chest was noted. There was no wheezing. ABDOMEN: Soft, nontender. LABORATORY DATA: BMP this morning, BUN 25, creatinine was normal, glucose 121. The potassium was noted as 3.1, better from yesterday. The INR subtherapeutic at 1.3, PTT was normal. IMPRESSION: 1. The patient with acute pneumonia with left pleural fluid. 2. Anticoagulation, which has been currently placed on hold for patient for thoracentesis. Procedure to be done by radiology services. 3. Acute hypoxic respiratory failure secondary to the above. PLAN OF MANAGEMENT: Continuation of the current therapy plan and management as soon as after completion thoracentesis. The anticoagulation could be resumed. Continue monitoring and managing hyperkalemia secondary to the congestive heart failure with the diuretic therapy. The hyperkalemia for this patient has been improving. All other supportive therapy, plan of management continue as previously. [place], [place] PROGRESS NOTE NAME: PETE BAUTISTA UNIT #: [id number] ROOM: 422 DOCTOR: EARL SPEARS MD BIRTHDATE: [birth year] EARL ESCOBAR MD CM:PNTRANS [id number] EARL GONZALEZ MD 07/10/17 1541 interface
--- NOTE | ~2017-07-05 | PR ---
[place], [place] PROGRESS NOTE NAME: PETE BAUTISTA [facility] #: [id number] UNIT #: [id number] ROOM: 422 DOCTOR: JAZZY DENTON DO BIRTHDATE: [birth year] DOS: 07/12/2017 SUBJECTIVE: The patient was seen and evaluated today. The patient is alert, awake and responsive. No nausea, vomiting, diarrhea, lightheadedness, dizziness, chest pain or shortness of breath. The patient says that her shortness of breath has improved compared to yesterday. OBJECTIVE: VITAL SIGNS: Temperature 97.3, pulse 78, respiratory rate 18, blood pressure of 91/66. HEENT: Normocephalic, atraumatic. No lesions or ulceration in the eyes. NECK: Supple, without masses or ulceration. CARDIORESPIRATORY: No respiratory distress. Lung exam, no rales, rhonchi, wheezing or pleural rub. LUNGS: Diminished breath sounds at the left lower chest was noted. ABDOMEN: Abdominal assessment, positive bowel sounds, nontender, nondistended. Abdominal assessment, no masses, no rigidity, no guarding, no abdominal pain. EXTREMITIES: No edema noted. No clubbing, no cyanosis. NEUROLOGIC: Grossly intact. SKIN: Warm, dry, no rashes or ulceration. LABORATORY DATA: CBC done on 07/07/2017, white cell count of 10.1, hemoglobin of 10.4, platelet count of 299. Chemistry done on 07/12/2017, sodium of 136, potassium of 2.6, BUN of 27, creatinine of 0.95 and glucose of 111. ASSESSMENT: 1. Left lower lobe pneumonia with left pleural fluid, status post thoracentesis on 07/10/2017 with 850 mL removed. 2. Acute hypoxic failure secondary to above. 3. Morbid obesity. 4. Chronic obstructive pulmonary disease. 5. Hyperlipidemia. PLAN: The patient will be supplemented with oral potassium supplementation for hypokalemia. She has already received K-Dur p.o. 40 mEq now and she is scheduled to receive K-Dur 80 mEq later today. Plan to check potassium approximately at 4-5 p.m. and discharge the patient if potassium is normal. 2. The patient can be discharged on doxycycline 100 mg p.o. b.i.d. for 5 days. JAZZY DENTON DO [place], [place] PROGRESS NOTE NAME: PETE BAUTISTA Miguel UNIT #: [id number] ROOM: [facility] DOCTOR: JAZZY DENTON DO BIRTHDATE: [birth year] EARL ESCOBAR MD CM:ELENA [id number] JAZZY DENTON DO 07/12/17 1205 interface
--- NOTE | ~2017-07-05 | PR ---
[place], [place] PROGRESS NOTE NAME: PETE BAUTISTA UNIT #: [id number] ROOM: 422 DOCTOR: EARL SPEARS MD BIRTHDATE: [birth year] DOS: 07/08/2017 PULMONARY CONSULTATION SUBJECTIVE: She was still complaining of some pain in the left side of the chest. In general, was feeling better. The coughing has been noted decreased. Shortness of breath has been resolving. There are no symptoms of abdominal pain. Edema of the lower extremity has been gradually resolving. OBJECTIVE: VITAL SIGNS: Normal temperature, respiratory rate 20, heart rate 68, blood pressure is 126/70 - 118/56. Pulse oxygen saturation on 2-1/2 liters nasal cannula is 98% saturation. HEENT: Examination shows no new change. NECK: Supple. CARDIOVASCULAR: S1, S2 audible. LUNGS: The patient was noted without any wheezing or crackles on the right side. Decreased breath sounds still noted in the left lower chest posteriorly. ABDOMEN: Soft. EXTREMITIES: Still 1-2+ pitting edema. LABORATORY DATA: BMP this morning showed normal BUN and creatinine. However, the potassium noted at 2.9. CO2 of 34. The INR noted 2.0 in the low therapeutic range for this patient. The culture of the sputum was noted with normal lorena. IMPRESSION: 1. The patient with acute pneumonia involving the left lower lobe, possibly associated pleural fluid or continued consolidation. 2. Anticoagulation has been discontinued for the patient temporarily at this time for the possible thoracentesis. 3. Hyperkalemia secondary to the diuretic therapy. PLAN OF TREATMENT: Supplementation of potassium, will keep the patient off anticoagulation, reassess the chest with ultrasound tomorrow. If significant pleural fluid develops for this patient, consider thoracentesis. Otherwise, the change in antibiotic, which were made for this patient yesterday will be continued. [place], [place] PROGRESS NOTE NAME: PETE BAUTISTA UNIT #: [id number] ROOM: 422 DOCTOR: EARL SPEARS MD BIRTHDATE: [birth year] EARL ESCOBAR MD CM:PNTRANS [id number] EARL GONZALEZ MD 07/09/17 1303 interface
--- NOTE | ~2017-07-05 | PR ---
[place], [place] PROGRESS NOTE NAME: PETE BAUTISTA UNIT #: [id number] ROOM: 422 DOCTOR: JAZZY DENTON DO BIRTHDATE: [birth year] DOS: 07/11/2017 This is a pulmonary service for Dr. Escobar. SUBJECTIVE: The patient ____. The patient denies any symptoms of sputum production. The patient has mild cough. No nausea, vomiting, diarrhea, lightheadedness, dizziness or chest pain. OBJECTIVE: VITAL SIGNS: Temperature 99.3, pulse 78, blood pressure of 100/60, respiratory rate of 20. HEENT: No change. Normal HEENT exam. NECK: Supple. CARDIOVASCULAR: S1, S2 audible. LUNGS: Decreased breath sounds in the lower left chest was noted. There was no wheezing or rhonchi. ABDOMEN: Soft, nontender. LABORATORY DATA: CBC this morning 10.1 of white cell count, 10.4 hemoglobin and platelet of 299. Sodium of 135, potassium of 2.8, BUN of 23, creatinine of 0.94 and glucose slightly elevated to 165. INR is subtherapeutic to 1.2. IMPRESSIONS: 1. Left lower lobe pneumonia with left pleural fluid, status post thoracentesis on 07/10/2017 with 850 mL removed. 2. Acute hypoxic failure secondary to above. 3. Morbid obesity. 4. Chronic obstructive pulmonary disease. 5. Hyperlipidemia. PLAN OF MANAGEMENT: 1. Continue current therapy plan of management. 2. Continue doxycycline and cefepime. 3. Possible discharge tomorrow. 4. Continue supportive care. JAZZY DENTON DO [place], [place] PROGRESS NOTE NAME: PETE BAUTISTA UNIT #: [id number] ROOM: 422 DOCTOR: JAZZY DENTON DO BIRTHDATE: [birth year] EARL ESCOBAR MD CM:ELENA [id number] JAZZY DENTON DO 07/11/17 1055 interface
--- NOTE | ~2017-07-05 | PR ---
[place], [place] PROGRESS NOTE NAME: PETE BAUTISTA UNIT #: [id number] ROOM: 422 DOCTOR: EARL SPEARS MD BIRTHDATE: [birth year] DOS: 07/09/2017 SUBJECTIVE: She was still complaining of some pain in the chest. Shortness of breath has been noted to decrease. Coughing has been noted mild. There were no symptoms of abdominal pain. OBJECTIVE: VITAL SIGNS: Temperature 99.2 degrees Fahrenheit, normal temperature in the last 24 hours, respiration 18-20, heart rate ____, blood pressure 108/49. The pulse oxygen saturation on 2 liters nasal cannula was 92%, on room air was 88% saturation. HEENT: Examination shows no acute change. NECK: Supple. CARDIOVASCULAR: S1, S2 audible. LUNGS: Noted decreased breath sounds in the left lower lung. ABDOMEN: Soft, nontender. LABORATORY DATA: BMP today shows glucose 116, BUN and creatinine was normal. Potassium 2.6, chloride of 93. PT/INR were noted subtherapeutic at 1.5. IMPRESSION: 1. The patient with pleural fluid, seemed to be increasing, but the acoustic window is noted quite poor for this patient, cannot clearly determine the lung tissue along with the pleural fluid with the ultrasound ____ which was assessed today. 2. Persistent acute hypoxic respiratory failure with acute pneumonia. 3. Subtherapeutic INR, as the patient anticoagulation remains on hold for potential thoracentesis. PLAN OF MANAGEMENT: Continuation of the antibiotics and bronchodilators. Continuation of other therapy, plan and management and other care. Thoracentesis was ordered to be done by the radiologist department for this patient tomorrow. In the meantime, keep the patient off the anticoagulation. Supplementation of potassium has been ongoing because of the hypokalemia related to the diuretic with current congestive heart failure. Edema of the lower extremities continued to resolve. [place], [place] PROGRESS NOTE NAME: PETE BAUTISTA UNIT #: [id number] ROOM: 422 DOCTOR: EARL SPEARS MD BIRTHDATE: [birth year] EARL ESCOBAR MD CM:PNTRANS [id number] EARL GONZALEZ MD 07/10/17 0658 interface
--- NOTE | ~2017-07-05 | PR ---
[place], [place] PROGRESS NOTE NAME: PETE BAUTISTA [facility] #: [id number] UNIT #: [id number] ROOM: 422 DOCTOR: LUZ GONZALEZ MD,EARL BIRTHDATE: [birth year] DOS: 07/07/2017 SUBJECTIVE: The patient has been noted comfortable at this time. The edema of the lower extremity has been gradually subsiding. There were no symptoms of chest pain or any abdominal pain. The patient's chest pain was noted, controlled. OBJECTIVE: VITAL SIGNS: Shows a normal temperature, respiratory rate 20, heart rate of 80, blood pressure 110/63-105/55. Intake of the patient is 1360 mL, output 3100 mL. Pulse oxygen saturation on 2.5 L nasal cannula 90% saturation. HEENT: Examination shows no new change. NECK: Supple. CARDIOVASCULAR: S1, S2 audible. LUNGS: The patient was noted without any wheezing or crackles on the right side. Decreased breath sounds in the left lower lung. ABDOMEN: Soft, nontender. LABORATORY DATA: Chest x-ray that was done this morning shows increased infiltration of the lower lung with possibly associated left pleural fluid as compared to my office chest x-ray. The INR noted therapeutic at 3.0. CBC: WBC count was 10.4, hemoglobin 34.3, platelet count remains normal. The culture of the sputum for this patient shows preliminary normal lorena. IMPRESSION: 1. The patient with acute pneumonia, which seemed to be radiological progression, but clinical improvement with associated possible pleural fluid. However, the ultrasound of the chest was performed that does not show any significant pleural fluid, most of the area appeared to be consolidated lung. 2. The patient with history of bronchial asthma as well 3. Obstructive sleep apnea disorder. 4. Acute congestive heart failure with diastolic dysfunction. PLAN OF MANAGEMENT: Coumadin at this time will be placed on hold. Repeat ultrasound of the chest in the next couple of days to assess the pleural fluid. If significant pleural fluid develops, thoracentesis will be done with the ultrasound guidance. Also, discontinuation of the Zithromax. The patient had Rocephin. The patient will be started on doxycycline orally and the Rocephin will be changed to the IV cefepime. Monitor culture results. Other supportive therapy, plan of management and care. Usual treatment. Additional treatment changes will be done based on the progression of the illness. [place], [place] PROGRESS NOTE NAME: PETE BAUTISTA UNIT #: [id number] ROOM: 422 DOCTOR: LUZ GONZALEZ MD,EARL BIRTHDATE: [birth year] EARL ESCOBAR MD CM:PNTRANS [phone] 3 EARL GONZALEZ MD 07/08/17223 interface
--- NOTE | ~2017-07-05 | PR ---
[place], [place] PROGRESS NOTE NAME: PETE BAUTISTA UNIT #: [id number] ROOM: 422 DOCTOR: EARL SPEARS MD BIRTHDATE: [birth year] DOS: 07/12/2017 SUBJECTIVE: The patient was seen with a [id number] encounter. Physical was examination performed. The history was confirmed. The labs were reviewed. Decision made for this patient, medical management were personally done. The note which was done by the medical representative were approved. The patient was noted comfortably resting at this time on the bed, noted with marked improvement and resolution of symptoms after thoracentesis. Cytology for the patient's pleural fluid was noted to benign. OBJECTIVE: VITAL SIGNS: For the patient remains afebrile, respiratory rate 19, heart rate 78, blood pressure 91/66. The pulse oxygen saturation of the patient was noted at 96% on 2 liters. HEENT: No acute change. LUNGS: Noted with mild decreased breath sounds in the left lower lobe. ABDOMEN: Soft, nontender. LABORATORY DATA: BMP today shows potassium 2.6, CO2 was 37. The INR was noted 1.2. IMPRESSION: 1. The patient with severe hypokalemia secondary to diuretic with marked resolution and improvement continued for the acute congestive heart failure as well as acute pneumonia for this patient as well. 2. Resolution of the acute hypoxic respiratory failure of the patient was also noted progressively. PLAN OF TREATMENT: The patient has been ordered the potassium supplementation. I will be ordering the 6-minute walk test for this patient for assessment of possible home oxygen need. Outpatient followup would be done for this patient post-discharge. Other supportive plan and management for the patient that are in progress will be continued. [place], [place] PROGRESS NOTE NAME: PETE BAUTISTA UNIT #: [id number] ROOM: 422 DOCTOR: EARL SPEARS MD BIRTHDATE: [birth year] EARL ESCOBAR MD CM:PNTRANS [id number] EARL GONZALEZ MD 07/13/17 0542 interface
[~2017-07-05 13:33] MED LIST changes: +ASPIRIN CHEWABL81 MG PO; +DILTIAZEM HYDR180 M2 PO; +LASIX40 MG PO; +LEVAQUIN500 M2 PO; +METOPROLOL TART50 M1 PO; +NATURE'S BLEN2000 IU PO; +OYSTER SHELL CA1 T17 PO; +PREDNISONE50 MG PO; +SIMVASTATIN10 MG PO; +SINGULAIR10 M1 PO; +SYMBICORT1 AE1 INH
[2017-07-05 13:45] VITALS: BP 115/65
--- NOTE | 2017-07-05 13:45 | NUR ---
A 67, admitted to , under the services of ANDRA Lewis DO with a diagnosis of RESPIRATORY FAILURE. Chief complaint is SENT FROM OFFICE FOR SHORTNESS OF BREATH. Patient arrived via wheel chair from [place]. Monitor applied. Initial assessment completed. Vital signs taken and recorded. ANDRA LEWIS DO notified of admission to the unit. Orders received. See assessment for past medical history, medications and allergies. Patient and/or family oriented to unit. [facility]. Clothing/patient valuable form completed. RAY JEREZ
[2017-07-05] MEDS ORDERED: COUMADIN5 M2 PO (13:56)
[2017-07-05] MEDS ORDERED: ZYRTEC10 MG PO (14:03)
[2017-07-05] MEDS ORDERED: Ferrex 150150 MG PO (14:55)
[2017-07-05] MEDS ORDERED: DILTIAZEM CD240 MG PO (14:58)
[2017-07-05 15:53] LABS: BASO % 0.3 % (0.0-1.0); EOS # 0.1 10*3/uL (0.0-0.4); EOS % 0.8 % (1.0-4.0); HEMATOCRIT 37.9 % (37.0-47.0); HEMOGLOBIN 11.7 g/dl (12.0-16.0); LYMPH # 0.7 10*3/uL (1.3-4.4); LYMPH % 6.6 % (27.0-41.0); MEAN CORPUSCULAR HGB 27.5 pg (27.0-31.0); MEAN CORPUSCULAR HGB CONC 30.9 g/dl (33.0-37.0); MEAN PLATELET VOLUME 10.9 fl (9.6-12.3); MONO # 0.9 10*3/uL (0.1-1.0); MONO % 8.4 % (3.0-9.0); NEUT # 8.5 10*3/uL (2.3-7.9); NEUT % 83.4 % (47.0-73.0); PLATELET COUNT AUTOMATED 330 10*3/uL (130-400); RED BLOOD COUNT 4.26 10*6/uL (4.10-5.10); RED CELL DISTRI WIDTH 16.6 % (0-14.5); WHITE BLOOD COUNT 10.2 10*3/uL (4.8-10.8)
[2017-07-05 16:00] VITALS: BP 124/58
[2017-07-05 16:02] LABS: ACT PARTIAL THROMBO TIME 38.7 SECONDS (20.8-31.5); INTERNATIONAL NORM RATIO 4.2 (2.0-3.5)
[2017-07-05 16:12] LABS: ALBUMIN 2.9 gm/dl (3.1-4.5); ALKALINE PHOSPHATASE 80 U/L (45-117); BUN 12 mg/dl (7-24); CHLORIDE 103 mmol/L (98-107); MAGNESIUM 1.8 mg/dL (1.5-2.1); POTASSIUM 3.2 mmol/L (3.5-5.1); SGOT/AST 12 IU/L (3-35); SGPT/ALT 11 U/L (12-78); SODIUM 141 mmol/L (136-145); TOTAL PROTEIN 6.8 gm/dL (6.4-8.2)
[2017-07-05 16:17] LABS: TROPONIN I < 0.015 ng/ml (<0.045)
--- NOTE | 2017-07-05 17:37 | NUR ---
NOTIFIED OF NEW CONSULT ORDER.
[2017-07-05 20:00] VITALS: BP 122/67
--- NOTE | 2017-07-05 20:00 | NUR ---
PATIENT ASSESSMENT COMPLETE. RESTING IN BED. DENIES PAIN OR SHORTNESS OF BREATH. ALERT AND ORIENTED TO PERSON PLACE AND TIME. LUNGS DIMINISHED TO AUSCULTATION. C/O NON PRODUCTIVE COUGH. INSENTIVE SPIROMETER USED WHILE AT BEDSIDE. OXYGEN VIA NASAL CANNULA INTACT. 2+ EDEMA NOTED TO BILATERAL LOWER EXTREMITIES. BED IN LOWEST POSITION, CALL LGIHT IN REACH
--- NOTE | 2017-07-05 22:00 | NUR ---
PATIENT AMBULATED TO RESTROOM. NO DISTRESS NOTED. BED IN LOWEST POSITOIN, CALL LIGHT IN REACH
[2017-07-06] VITALS: BP 103/45
--- NOTE | 2017-07-06 02:07 | NUR ---
PATIENT RESTING IN BED WITH EYES CLOSED. RESPS EASY AND REGULAR. BED IN LOWEST POSITION, CALL LIGHT IN REACH
--- NOTE | 2017-07-06 05:26 | NUR ---
RESTING WITH CPAP INTACT. NO S/S OF DISTRESS
[2017-07-06 06:46] LABS: BASO % 0.5 % (0.0-1.0); EOS # 0.2 10*3/uL (0.0-0.4); HEMATOCRIT 35.1 % (37.0-47.0); HEMOGLOBIN 10.7 g/dl (12.0-16.0); LYMPH # 0.8 10*3/uL (1.3-4.4); LYMPH % 10.5 % (27.0-41.0); MEAN CELL VOLUME 89.3 fl (81.0-99.0); MEAN CORPUSCULAR HGB 27.2 pg (27.0-31.0); MEAN CORPUSCULAR HGB CONC 30.5 g/dl (33.0-37.0); MEAN PLATELET VOLUME 11.2 fl (9.6-12.3); MONO # 0.8 10*3/uL (0.1-1.0); MONO % 9.6 % (3.0-9.0); NEUT # 6.2 10*3/uL (2.3-7.9); PLATELET COUNT AUTOMATED 296 10*3/uL (130-400); RED BLOOD COUNT 3.93 10*6/uL (4.10-5.10); RED CELL DISTRI WIDTH 16.6 % (0-14.5)
[2017-07-06 06:54] LABS: BUN 11 mg/dl (7-24); CHLORIDE 104 mmol/L (98-107); CHOLESTEROL 86 mg/dL (<200); CREATININE 0.79 mg/dL (0.55-1.02); MAGNESIUM 1.7 mg/dL (1.5-2.1); PHOSPHOROUS 3.6 mg/dL (2.5-4.9); POTASSIUM 3.5 mmol/L (3.5-5.1); SODIUM 143 mmol/L (136-145)
[2017-07-06 06:59] LABS: HDL CHOLESTEROL 45 mg/dl (40-60); LDL CHOLESTEROL 29 mg/dL (9-159); TRIGLYCERIDES 60 mg/dl (<150); VLDL CHOLESTEROL 12 mg/dL (6-40)
[2017-07-06 07:05] LABS: THYROID STIM HORMONE (HS) 0.527 uIU/ml (0.358-4.75)
[2017-07-06 07:20] LABS: ACT PARTIAL THROMBO TIME 36.1 SECONDS (20.8-31.5); INTERNATIONAL NORM RATIO 3.5 (2.0-3.5)
[2017-07-06 07:57] LABS: VITAMIN D, 25-HYDROXY 33.9 ng/mL (30-100)
[2017-07-06 08:00] VITALS: BP 110/74
[2017-07-06 08:13] LABS: BILIRUBIN NEGATIVE (NEGATIVE); BLOOD NEGATIVE (NEGATIVE); CLARITY CLEAR (CLEAR); COLOR STRAW (YELLOW); GLUCOSE NEGATIVE (NEGATIVE); KETONE NEGATIVE (NEGATIVE); LEUKO ESTERASE 2+ (NEGATIVE); NITRITE NEGATIVE (NEGATIVE); UROBILINOGEN 0.2 E.U./dl (0.2-1.0)
[2017-07-06 08:30] LABS: BACTERIA 1+; RBC 0-2 rbc/hpf (0-2); WBC 16-20 wbc/hpf (0-5)
--- NOTE | 2017-07-06 09:00 | NUR ---
Wood Router in to talk to patient. Patient states lives at home with daughter. There are no steps in the home. Physician: aaron thakkar Pharmacy: [facility] services: none Patient's level of ADLs: MINIMAL ASSIST Patient has working utilities: all working DME: cane Follow-up physician's appointment after d/c: will be made by hospitalist nurse director upon discharge Does patient want to access PORTAL?: no Discharge plan discussed with patient, patient lives at home with her daughter, states she uses a cane for ambulation, patient states she will be going back home discussed with her VNA and she refused any services at this time. SHIRLEY DEL VALLE
--- NOTE | 2017-07-06 10:03 | NUR ---
Removed monitor and self showered. Dr. Gore in .
[2017-07-06 12:00] VITALS: BP 130/59
--- NOTE | 2017-07-06 14:34 | NUR ---
Up and about in room , Urine and sputum sent. Dr. Galvan in.
[2017-07-06 16:00] VITALS: BP 125/72
[2017-07-06 20:00] VITALS: BP 140/76
--- NOTE | 2017-07-06 21:16 | NUR ---
PT. ALERT AND ORIENTED X 3. LUNG SOUNDS DIMINISHED, PT. STATED PAIN TO LEFT SIDE DURING DEEP INSPIRATION, NC @ 4L. S1S2 HEART SOUNDS, PT. DENIES CHEST PAIN. BOWEL SOUNDS NORMOACTIVE X 4 QUADS, PT. DENIES N/V/D. DISCOLORATION TO BLE. CALL LIGHT WITHIN REACH, BED IN LOWEST POSITION, WHEELS LOCKED.
--- NOTE | 2017-07-06 23:31 | NUR ---
24 HOUR CHART CHECK COMPLETED AT THIS TIME.
[2017-07-07] VITALS: BP 105/55
[2017-07-07 06:19] LABS: BASO % 0.4 % (0.0-1.0); EOS # 0.2 10*3/uL (0.0-0.4); EOS % 1.8 % (1.0-4.0); HEMATOCRIT 34.3 % (37.0-47.0); HEMOGLOBIN 10.4 g/dl (12.0-16.0); LYMPH # 1.1 10*3/uL (1.3-4.4); LYMPH % 10.4 % (27.0-41.0); MEAN CELL VOLUME 89.1 fl (81.0-99.0); MEAN CORPUSCULAR HGB CONC 30.3 g/dl (33.0-37.0); MEAN PLATELET VOLUME 11.4 fl (9.6-12.3); MONO # 1.1 10*3/uL (0.1-1.0); MONO % 10.9 % (3.0-9.0); NEUT # 7.7 10*3/uL (2.3-7.9); NEUT % 76.1 % (47.0-73.0); PLATELET COUNT AUTOMATED 299 10*3/uL (130-400); RED BLOOD COUNT 3.85 10*6/uL (4.10-5.10); RED CELL DISTRI WIDTH 16.5 % (0-14.5); WHITE BLOOD COUNT 10.1 10*3/uL (4.8-10.8)
[2017-07-07 08:00] VITALS: BP 110/63
[2017-07-07 12:00] VITALS: BP 107/54
--- NOTE | 2017-07-07 13:11 | NUR ---
PT GIVEN PRN IV ZOFRAN FOR COMPLAINTS OF NAUSEA.
[2017-07-07 16:00] VITALS: BP 109/76
[2017-07-07 20:00] VITALS: BP 120/64
[2017-07-08] VITALS: BP 102/73
--- NOTE | 2017-07-08 05:00 | NUR ---
PATIENT RESTING IN BED WITH EYES CLOSED WITH BIPAP ON. NO SIGNS OR SYMPTOMS OF DISTRESS NOTED. MEDICATED WITH TYLENOL AT 2136 FOR COMPLAINTS OF A HEADACHE. WILL CONTINUE TO MONITOR. CALL LIGHT IN REACH.
[2017-07-08 06:28] LABS: CHLORIDE 96 mmol/L (98-107); CREATININE 0.88 mg/dL (0.55-1.02); POTASSIUM 2.9 mmol/L (3.5-5.1); SODIUM 138 mmol/L (136-145)
[2017-07-08 06:34] LABS: BUN 21 mg/dl (7-24)
[2017-07-08 08:00] VITALS: BP 118/56
[2017-07-08 12:00] VITALS: BP 126/72
[2017-07-08 16:00] VITALS: BP 110/61
--- NOTE | 2017-07-08 19:58 | NUR ---
MEDICATED WITH PRN TYLENOL FOR C/O HEADACHE. RATES 04/14. WILL MONITOR FOR EFFECTIVENESS.
[2017-07-08 20:00] VITALS: BP 117/79
--- NOTE | 2017-07-08 20:00 | NUR ---
ASSUMED CARE OF PATIENT. ASSESSMENT COMPLETE. SITTING UP IN CHAIR. CALL LIGHT IN REACH. WILL CONTINUE TO MONITOR.
--- NOTE | 2017-07-08 22:00 | NUR ---
DAILY MED REC COMPLETED PER PATIENT
--- NOTE | 2017-07-08 23:00 | NUR ---
PER PATIENT, EARLIER TYLENOL EFFECTIVE
[2017-07-09] VITALS: BP 110/61
--- NOTE | 2017-07-09 02:00 | NUR ---
SLEEPING. RESP EASY AND NONLABORED. CPAP INTACT. NO DISTRESS NOTED. CALL LIGHT IN REACH. WILL CONTINUE TO MONITOR.
[2017-07-09 06:03] LABS: BUN 22 mg/dl (7-24); CHLORIDE 92 mmol/L (98-107); POTASSIUM 2.6 mmol/L (3.5-5.1); SODIUM 138 mmol/L (136-145)
--- NOTE | 2017-07-09 06:26 | NUR ---
PT C/O LEG CRAMPS, K 2.6. CALLED AND MADE DR AGUIRRE AWARE. ORDER RECEIVED
--- NOTE | 2017-07-09 06:47 | NUR ---
40 MEQ K DUR GIVEN AT THIS TIME PER ORDER
[2017-07-09 06:50] LABS: INTERNATIONAL NORM RATIO 1.5 (2.0-3.5)
[2017-07-09 08:00] VITALS: BP 114/70
--- NOTE | 2017-07-09 09:51 | NUR ---
Medicated for c/o headache. when asked to scale. stated it around the left side of her neck. and it just aches.
[2017-07-09 12:00] VITALS: BP 108/49
--- NOTE | 2017-07-09 12:09 | NUR ---
Medicateion effective to reduce severity of headache
--- NOTE | 2017-07-09 13:00 | NUR ---
[facility] guided thorocentesis was orderd for IR in AM.
[2017-07-09 16:00] VITALS: BP 126/65
--- NOTE | 2017-07-09 18:00 | NUR ---
MEDICATED WITH TYLENOL PER PT REQUEST FOR GENERALIZED ACHES AND PAINS. WILL MONITOR FOR EFFECTIVENESS.
[2017-07-09 20:00] VITALS: BP 107/56
--- NOTE | 2017-07-09 20:00 | NUR ---
ASSUMED CARE OF PATIENT. ASSESSMENT COMPLETE. RESTING IN BED WITH NO COMPLAINTS. CALL LIGHT IN REACH. WILL CONTINUE TO MONITOR.
--- NOTE | 2017-07-09 20:36 | NUR ---
DAILY MED REC REVIEWED WITH PATIENT
[2017-07-10] VITALS: BP 92/52
--- NOTE | 2017-07-10 00:45 | NUR ---
BP 92/52 CALLED AND SPOKE TO DR ROBLES. ORDER RECEIVED TO CHECK BP IN AM AND IF SBP <100 HOLD 0600 DOSE OF LASIX.
--- NOTE | 2017-07-10 02:00 | NUR ---
SLEEPING. RESP EASY AND NONLABORED. NO DISTRESS NOTED. CPAP INTACT. CALL LIGHT IN REACH. WILL CONTINUE TO MONITOR.
--- NOTE | 2017-07-10 03:13 | NUR ---
MEDICATED WITH PRN TYLENOL FOR C/O KNEE PAIN. RATES 04/14. WILL MONITOR FOR EFFECTIVENESS
[2017-07-10 05:57] VITALS: BP 110/62
--- NOTE | 2017-07-10 05:57 | NUR ---
AWAKENED FOR AM MEDICATIONS. PT STATES THAT EARLIER TYLENOL WAS EFFECTIVE FOR RELIEF OF HER KNEE PAIN.
[2017-07-10 06:38] LABS: BUN 25 mg/dl (7-24); CHLORIDE 91 mmol/L (98-107); CREATININE 0.95 mg/dL (0.55-1.02); POTASSIUM 3.1 mmol/L (3.5-5.1); SODIUM 134 mmol/L (136-145)
[2017-07-10 06:45] LABS: INTERNATIONAL NORM RATIO 1.3 (2.0-3.5)
[2017-07-10 08:00] VITALS: BP 124/67
--- NOTE | 2017-07-10 08:35 | NUR ---
PT GIVEN PO TYLENOL PER PRN ORDER FOR C/O GENERALIZED DISCOMFORT. WILL MONITOR EFFECTIVENESS. PT AWAITS FOR SCHEDULED THORACENTESIS BY IR PER ORDER.
--- NOTE | 2017-07-10 08:44 | NUR ---
IN TO SEE PATIENT.
--- NOTE | 2017-07-10 10:38 | NUR ---
PATIENT TAKEN DOWN TO IR FOR SCHEDULED THORACENTESIS.
--- NOTE | 2017-07-10 11:34 | NUR ---
PATIENT RETURNED TO FLOOR AT THIS TIME.
[2017-07-10 11:41] LABS: BODY FLUID WBC 112 /uL
[2017-07-10 12:00] VITALS: BP 119/96
[2017-07-10 12:07] LABS: BF LYMPHOCYTES 39 %; BF MESOTHELIALS 6 %; BF MONOCYTES 1 %; BF NEUTROPHILS 54 %
[2017-07-10 16:00] VITALS: BP 111/62
[2017-07-10 20:00] VITALS: BP 117/60
--- NOTE | 2017-07-10 20:00 | NUR ---
ASSUMED CARE OF PATIENT. ASSESSMENT COMPLETE. RESTING IN BED. CPAP INTACT. DENIES FURTHER NEEDS AT THIS TIME. CALL LIGHT IN REACH.
[2017-07-11] VITALS: BP 96/79
--- NOTE | 2017-07-11 00:55 | NUR ---
PT IN BED SLEEPING AT THIS TIME. CALL LIGHT IN REACH. SEE SHIFT ASSESSMENT FOR FURTHER DETAILS.
--- NOTE | 2017-07-11 01:20 | NUR ---
PT GIVEN TYLENOL PRN FOR HEADACHE. WILL CONTINUE TO MONITOR.
--- NOTE | 2017-07-11 02:00 | NUR ---
REASSEMENT OF HEADACHE PT RESULTS: PT SLEEPING, MEDICATION SEEMINGLY EFFECTIVE AEB SLEEP. WILL CONTINUE TO MONITOR.
--- NOTE | 2017-07-11 04:51 | NUR ---
PT SLEEPING, EASY BREATHING, CALL LIGHT IN REACH
--- NOTE | 2017-07-11 06:00 | NUR ---
ROUTINE ROUNDS AND MEDS, CALL LIGHT IN REACH.
[2017-07-11 06:51] VITALS: BP 100/60
[2017-07-11 06:52] LABS: INTERNATIONAL NORM RATIO 1.2 (2.0-3.5)
[2017-07-11 08:00] VITALS: BP 124/64
--- NOTE | 2017-07-11 08:00 | NUR ---
OOB SITTING IN RECLINER. AWAKE ALERT AND ORIENTED X3, NO S/S OF DISTRESS. WILL CONT TO MONITOR. CALL LIGHT IN REACH. SEE ASSESS.
[2017-07-11 08:59] LABS: BUN 23 mg/dl (7-24); CHLORIDE 89 mmol/L (98-107); CREATININE 0.94 mg/dL (0.55-1.02); POTASSIUM 2.8 mmol/L (3.5-5.1); SODIUM 135 mmol/L (136-145)
--- NOTE | 2017-07-11 09:00 | NUR ---
case management visits with patient, discussed with her a discharge plan including VNA, patient refused any services at this time, stated that her daughter was there to help her, case management will follow
[2017-07-11 12:00] VITALS: BP 147/79
--- NOTE | 2017-07-11 12:15 | NUR ---
PT. ASSESSED FOR HOME OXYGEN. PULSE OX ON RA AT REST 88%, BP 146/78, RR 20. PT. AMBULATED APPROX. 20 FT. AND HER PULSE OX DROPPED TO 76%. WITH INCREASED WOB AND C/O SOB. PT. PLACED ON O2 AT 2L AND HER SPO2 INCREASED TO 87%, O2 INCREASED TO 3L AND SPO2 IMPROVED TO 96%. PT.'S SPO2 REMAINED AT 94% ON 3L DURING HER WALK TO THE END OF THE HALLWAY AND BACK TO HER ROOM. AT REST ON 3L NC SPO2 96%, BP 147/84, RR20. RN NOTIFIED. ORDER CALLED TO [facility].
[2017-07-11] MEDS ORDERED: DOXYCYCLINE100 M3 PO (15:03)
[2017-07-11 16:00] VITALS: BP 115/84; BP 138/72
[2017-07-11 20:00] VITALS: BP 123/64
--- NOTE | 2017-07-11 20:10 | NUR ---
1948 RESTING IN BED WITH HOB ELEVATED. SIDE RAILS UP X'S 2. CALL LIGHT IN REACH.CPAP INTACT. HEP LOCK INTACT. NO C/O'S VOICED AT PRESENT TIME.
--- NOTE | 2017-07-11 22:19 | NUR ---
REMAINS WITHOUT C/O'S. VSS. CPAP INTACT.
[2017-07-12] VITALS: BP 92/68
--- NOTE | 2017-07-12 05:34 | NUR ---
PATIENT RESTING IN BED WITH EYES CLOSED. NO SIGNS OR SYMPTOMS OF DISTRESS NOTED. SLEPT WELL THROUGHOUT SHIFT WITH CPAP ON. WILL CONTINUE TO MONITOR. CALL LIGHT IN REACH.
--- NOTE | 2017-07-12 07:38 | NUR ---
BP 91/66 PT HAS BEEN RUNNING LOW THROUGHOUT THE NIGHT. DR COTA MADE AWARE.
--- NOTE | 2017-07-12 07:39 | NUR ---
SITTING ON SIDE OF BED ALERT AND ORIENTED X3, NO S/S OF DISTRESS. STATES SHE IS HAVING SOME COLD SYMPTOMS SUCH A SORE THROAT. SEE ASSESS. WILL CONT TO MONITOR. CALL LIGHT IN REACH.
[2017-07-12 07:41] LABS: BUN 27 mg/dl (7-24); CHLORIDE 92 mmol/L (98-107); CREATININE 0.95 mg/dL (0.55-1.02); POTASSIUM 2.6 mmol/L (3.5-5.1); SODIUM 136 mmol/L (136-145)
[2017-07-12 07:53] LABS: INTERNATIONAL NORM RATIO 1.2 (2.0-3.5)
[2017-07-12 08:00] VITALS: BP 91/66
--- NOTE | 2017-07-12 08:27 | NUR ---
K 2.6 AND WAS ALREADY ADDRESSED BY DR COTA. ZHANNA THORNTON.
--- NOTE | 2017-07-12 08:33 | NUR ---
C/O NAUSEA AFTER EATING BREAKFAST. ZOFRAN GIVEN AT THIS TIME. WILL CONT TO MONITOR.
--- NOTE | 2017-07-12 09:00 | NUR ---
case mangaement visits with patient, patient denies any home needs at this time
[2017-07-12 12:00] VITALS: BP 115/66
[2017-07-12] MEDS ORDERED: K-TAB20 MEQ PO (15:02)
[2017-07-12] MEDS ORDERED: OXYGEN NAS (15:05)
[2017-07-12 16:12] LABS: BUN 27 mg/dl (7-24); CHLORIDE 92 mmol/L (98-107); CREATININE 1.02 mg/dL (0.55-1.02)
[2017-07-12 16:24] LABS: SODIUM 133 mmol/L (136-145)
[2017-07-12 16:25] LABS: POTASSIUM 4.2 mmol/L (3.5-5.1)
--- NOTE | 2017-07-12 16:58 | NUR ---
PT DISCHARGED AT THIS TIME. IV REMOVED AND PRESSURE DRESSING APPLIED. VERBALIZED UNDERSTANDING OF DISCHARGE INSTRUCTIONS.
--- NOTE | 2017-07-13 07:31 | NUR ---
Late note: just prior to discharge from hospital, patient asked to speak with case management. In to talk with patient, she asked to have home health via [facility]. Received order, contacted [facility] and faxed referral.
== END 2017-07-12 16:58 | disposition home health service (06) | DRG 871 ==
LOC: 4E 13:33
PROVIDERS: Internal Medicine; Internal Medicine Critical Care Medicine; Internal Medicine Nephrology; ADMIT Internal Medicine
PROC: 5A09457 Assistance with Respiratory Ventilation, 24-96 Consecutive Hours, Continuous Positive Airway Pressure (ICD-10-PCS; 2017-07-07)
PROC: 0W9B3ZZ Drainage of Left Pleural Cavity, Percutaneous Approach (ICD-10-PCS; principal; 2017-07-10)
DX: A41.9 Sepsis, unspecified organism (principal); J18.1 Lobar pneumonia, unspecified organism; J96.01 Acute respiratory failure with hypoxia; I50.33 Acute on chronic diastolic (congestive) heart failure; E44.0 Moderate protein-calorie malnutrition; I48.2 Chronic atrial fibrillation; J43.9 Emphysema, unspecified; I11.0 Hypertensive heart disease with heart failure; D64.9 Anemia, unspecified; E11.9 Type 2 diabetes mellitus without complications; N30.00 Acute cystitis without hematuria; Z68.43 Body mass index [BMI] 50.0-59.9, adult; E78.00 Pure hypercholesterolemia, unspecified; R65.20 Severe sepsis without septic shock; E87.6 Hypokalemia; E87.5 Hyperkalemia; G47.33 Obstructive sleep apnea (adult) (pediatric); E78.5 Hyperlipidemia, unspecified; T45.515A Adverse effect of anticoagulants, initial encounter; E66.01 Morbid (severe) obesity due to excess calories; Z79.4 Long term (current) use of insulin; J30.9 Allergic rhinitis, unspecified; E55.9 Vitamin D deficiency, unspecified; K21.9 Gastro-esophageal reflux disease without esophagitis; Z98.84 Bariatric surgery status; Z90.49 Acquired absence of other specified parts of digestive tract; Z87.891 Personal history of nicotine dependence; Z79.82 Long term (current) use of aspirin; Z79.899 Other long term (current) drug therapy; Z80.9 Family history of malignant neoplasm, unspecified; Z83.3 Family history of diabetes mellitus; Z82.49 Family history of ischemic heart disease and other diseases of the circulatory system; Z82.5 Family history of asthma and other chronic lower respiratory diseases; Z88.8 Allergy status to other drugs, medicaments and biological substances; Z79.01 Long term (current) use of anticoagulants; Y92.89 Other specified places as the place of occurrence of the external cause

== ENCOUNTER → 2017-07-20 | Outpatient (CLI) | payer OTHER ==
[~2017-07-20] MED LIST changes: +COUMADIN5 M2 PO; +DILTIAZEM CD240 MG PO; +DOXYCYCLINE100 M3 PO; +Ferrex 150150 MG PO; +K-TAB20 MEQ PO; +OXYGEN NAS; +ZYRTEC10 MG PO
== END | disposition home or self-care (01) ==
LOC: RAD 16:29
DX: J98.11 Atelectasis (principal); J18.8 Other pneumonia, unspecified organism; I10 Essential (primary) hypertension; J44.9 Chronic obstructive pulmonary disease, unspecified; I51.7 Cardiomegaly; Z87.891 Personal history of nicotine dependence

== ENCOUNTER → 2017-08-06 | Day surgery (SDC) | payer OTHER ==
[~2017-08-06] MED LIST changes: +BREO ELLIPTA 11 EACH PO
[2017-08-06 08:00] VITALS: BP 120/55
[2017-08-06 08:11] LABS: ACT PARTIAL THROMBO TIME 24.4 SECONDS (20.8-31.5); INTERNATIONAL NORM RATIO 1.1 (2.0-3.5)
== END | disposition home or self-care (01) ==
LOC: SDC 08-03 14:00
PROVIDERS: Internal Medicine Critical Care Medicine
DX: J90 Pleural effusion, not elsewhere classified (principal)

== ENCOUNTER 2017-09-03 15:34 | Inpatient (IN) | payer OTHER ==
[~2017-09-03] VITALS: Ht 165.1 cm; Wt 141.2 kg
--- NOTE | ~2017-09-03 | CON ---
[place], [place] REPORT OF CONSULTATION NAME: PETE BAUTISTA [facility] #: [id number] UNIT #: [id number] ROOM: 503 DOCTOR: CHUN RAMONSANTOSH BIRTHDATE: [birth year] DOS: 09/04/2017 HISTORY OF PRESENT ILLNESS: The patient is a 67-year-old female with significant shortness of breath and weight gain. The patient was in her primary care PCP's office and she had an x-ray that showed effusion and the patient gained about 11 pounds and she was transferred here for further care. Dr. Galvan was consulted. The patient had chest x-ray in the ER that showed cardiomegaly with vascular congestion and moderately large left pleural effusion. The patient had a thoracentesis about 4 weeks ago, she had an echocardiogram recently that showed dilated left atrium, but left ventricular systolic function was well preserved. No significant valvular abnormalities. No obvious evidence of significant mitral or tricuspid regurgitation. PAST MEDICAL HISTORY: Significant for hypertension, diabetes, morbid obesity, and obstructive sleep apnea. PAST SURGICAL HISTORY: Gastric bypass, morbid obesity, cholecystectomy, and hernia repair. SOCIAL HISTORY: Does not drink alcohol or drugs. Former smoker. FAMILY HISTORY: COPD, CHF, diabetes and hypertension. ALLERGIES: OXYCODONE. HOME MEDICATIONS: Amlodipine, diltiazem, metoprolol, ____, ranitidine, simvastatin, triamterene and hydrochlorothiazide. REVIEW OF SYSTEMS: CONSTITUTIONAL: Positive for weight gain. HEENT: No visual disturbances or hearing problems. CARDIOVASCULAR: Reports lower extremity edema. No chest pain. RESPIRATORY: Positive for dyspnea on exertion. GASTROINTESTINAL: No nausea, no vomiting. GENITOURINARY: No dysuria. NEUROLOGIC: No syncope. VITAL SIGNS: Blood pressure today is 130/60. The patient is in sinus rhythm. NECK: Elevated JVD. LUNGS: Diminished breath sounds. CARDIAC: Heart sounds are regular. ABDOMEN: Obese, soft, nontender. NEUROLOGICAL: Stable. EXTREMITIES: Both 2+ edema. LABORATORY DATA: Sodium 138, potassium 3.7, BUN is 24, creatinine is 0.7. BNP is 3313, which is elevated. Hemoglobin 10.8, hematocrit 35.7. Chest x-ray showed cardiomegaly with vascular congestion. IMPRESSION: Acute exacerbation of diastolic congestive heart failure, anemia, [place], [place] REPORT OF CONSULTATION NAME: PETE BAUTISTA UNIT #: [id number] ROOM: 503 DOCTOR: SANTOSH MCCOLLUM MD BIRTHDATE: [birth year] history of atrial fibrillation and pleural effusion, gastroesophageal reflux disease and morbid obesity. RECOMMENDATIONS: I agree with IV diuretics, put him on 1500 mL fluid restriction. Discontinue amlodipine because of the water retention properties. Monitor the heart rate and blood pressure closely. If needed, use hydralazine for afterload reduction and control of blood pressure. Her creatinine is stable. If needed, he could also use losartan also instead of amlodipine and we will follow up. SANTOSH MCCOLLUM MD CM:CONSTR:REPORT OF CONSULTATION 0746 09/04/17 0823 interface
--- NOTE | ~2017-09-03 | CON ---
[place], [place] REPORT OF CONSULTATION NAME: PETE BAUTISTA [facility] #: [id number] UNIT #: [id number] ROOM: 503 DOCTOR: EARL SPEARS MD BIRTHDATE: [birth year] DOS: 09/04/2017 PULMONARY CONSULTATION EVALUATION AND MANAGEMENT CONSULTATION REQUESTED BY: Hospitalist services. REASON FOR CONSULTATION: Assessment of recurrent left pleural fluid with increased shortness of breath. HISTORY OF PRESENT ILLNESS: This 67-year-old white female is known to me from the past. She was seen by the primary care physician yesterday and was reporting having increased symptoms of shortness of breath occurring in the last few days. The symptoms have been noted progressive. Shortness of breath was noted quite disabling, occurring with mild exertion activity. She denies symptoms of chest pain. The patient does have [id number] nonproductive cough. Denies symptoms of wheezing. She has been advised for assessment in the Emergency Room. She was assessed in the Emergency Room and has been admitted to the hospital with current diagnosis of congestive heart failure with recurrent moderate-sized left pleural effusion. REVIEW OF SYSTEMS: CONSTITUTIONAL: Fatigue and tiredness noted without symptoms of fever or chills. EYES: Denies any burning, redness, or tenderness. EARS, NOSE, THROAT: No sore throat, hoarseness, otalgia, postnasal drainage or epistaxis. CARDIOVASCULAR: Denies anginal pain, edema or pain of the lower extremities. GASTROINTESTINAL: Denies dysphagia, nausea, vomiting, diarrhea, abdominal pain. GENITOURINARY: Denies dysuria, suprapubic pain, hematuria. SKIN: Denies lesions or rashes. MUSCULOSKELETAL: Denies any acute joint pain, redness, or tenderness at the present time, Remaining systems were reviewed for this patient, they were noted all negative. PAST MEDICAL HISTORY: Recent hospitalization in 07/2017 for the medical management of acute on chronic hypoxic respiratory failure with acute pneumonia, left pleural fluid, which required thoracentesis on 07/10/2017 and other thoracentesis was done for this patient as an outpatient because of recurrent pleural fluid. Pleural fluid was noted significant negative fluid containing a lot of proteins. The culture noted negative and the cytology was noted benign. Past medical history for this patient was also known as: 1. Uncomplicated severe persistent bronchial asthma. 2. Allergic rhinitis. 3. Essential hypertension. 4. Hypercholesterolemia. 5. Atrial fibrillation. 6. Obstructive sleep apnea disorder, treated with BiPAP setting 20/10 7. Chronic severe morbid obesity. 8. History of congestive heart failure, diastolic dysfunction. 9. Recurrent left pleural fluid at this time, unknown etiology as an exudative [place], [place] REPORT OF CONSULTATION NAME: PETE BAUTISTA UNIT #: [id number] ROOM: [facility] DOCTOR: LUZ GONZALEZ MD,EARL BIRTHDATE: [birth year] effusion. PAST SURGICAL HISTORY: 1. Laparoscopic cholecystectomy. 2. Bariatric surgery gastric bypass. 3. Incisional abdominal hernia. 4. Fiberoptic bronchoscopy. This was therapeutic. 5. Thoracentesis that was done for this patient in July 2017 x 2 on the left side. SOCIAL HISTORY: The patient is , has 2 children, lives at home by herself. Denies history of alcohol or illicit drug use. Tobacco use noticed from the age of [age] years old, 2 packs of cigarettes per day until year 1999. There was no history of occupation-related pulmonary exposure. FAMILY HISTORY: Father passed at the age of 9090 years old, complications of brain cancer. Mother when she was 75 years old, complications of diabetes mellitus. MEDICATIONS: The home medication which were listed at time of admission medication reconciliation were noted as use of: 1. Lasix 40 mg p.o. b.i.d. 2. Zofran 4 mg q. 6 hours. 3. Flonase 1 spray each nostril b.i.d. 4. Albuterol sulfate 30 mL via nebulizer q.i.d. p.r.n. for shortness of breath. 5. Norvasc 5 mg p.o. daily. 6. Aspirin 81 mg p.o. daily. 7. Cardizem-CD 240 mg daily. 8. Pepcid 20 mg p.o. b.i.d. 9. Maxzide 1 p.o. daily. 10. Magnesium hydroxide p.r.n. for constipation. 11. Lopressor 50 mg p.o. b.i.d. 12. Singulair 10 mg daily. 13. Protonix 40 mg p.o. daily. 14. Potassium chloride 20 mEq p.o. daily. 15. Simvastatin 10 mg daily. 16. Restoril 15 mg at bedtime. 17. 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 DRUG ALLERGIES: NOTED ALLERGY TO THE OXYCONTIN. PHYSICAL EXAMINATION: GENERAL: A 67-year-old female who has been currently noted sitting on the side of the bed without any acute distress. Height of 5 feet 5 inches, weight of 311 pounds and BMI of 51.8. VITAL SIGNS: For the patient which has been recorded shows normal temperature. The respiratory rate range between 21-18. Heart rate of 87-63, blood pressure 120/55-145/93. This morning recorded. Intake was noted as 1100, the output 1700 mL ____ since admission in the last 24 hours. The pulse oxygen saturation was noted between 92-96% saturation between 3 and 4 liters nasal cannula [place], [place] REPORT OF CONSULTATION NAME: PETE BAUTISTA UNIT #: [id number] ROOM: [facility] DOCTOR: LUZ GONZALEZ MD,EARL BIRTHDATE: [birth year] supplementation of oxygen. HEENT: Moderate obesity. Head was atraumatic. Eyes: No icterus. Decreased posterior pharyngeal space with high tongue base and crowding of soft tissue structures. CARDIOVASCULAR: S1, S2 audible. LUNGS: Noted without any crackles. Decreased breath sounds noted in the left lower lung base previously. There was no wheezing. ABDOMEN: Soft, obese, nontender. EXTREMITIES: Shows mild edema with chronic venous stasis pigmentation changes. Cranial nerves 2-12 intact. No focal deficits. MUSCULOSKELETAL: Does not show any acute deformities or lesions except mild senile kyphosis, which are noted more pronounced. SKIN: Chronic venous stasis pigmentation of the lower extremities bilaterally. LABORATORY DATA: CBC that was done yesterday in the Emergency Room, hemoglobin 10.8, hematocrit 35.7, platelet count and WBC count were normal. CBC of this morning for the patient was essentially noted the same. The CMP that was done yesterday on admission showed normal BUN and creatinine. Other LFTs were normal. ProBNP was noted mildly elevated. CMP ____ normal BUN and creatinine. Potassium 3.2. Troponin noted to assess yesterday normal. PT/PTT that was done this morning; INR was noted 4.1, elevated, and PTT of 38.0. Lactic acid yesterday was noted as normal. A 2-view chest x-ray that was done yesterday upon admission was personally reviewed from PACS images, shows moderate left-sided pleural fluid with pulmonary venous congestion marking, finding of congestive heart failure, a small right pleural fluid cannot be excluded. There was no area of consolidation. IMPRESSION: 1. The patient who has been currently admitted to the hospital noted with acute congestive heart failure with recurrent moderate-sized left pleural fluid noted exudative, etiology unclear. 2. The patient with history of obstructive sleep apnea disorder of bronchial asthma, which has been noticed stable. 3. Chronic hypoxic respiratory failure, noted stable as well to current use of oxygen. 4. History of chronic obesity as well with allergic rhinitis. 5. Chronic hypoxic respiratory failure with use of oxygen. 6. Mild Coumadin toxicity related to most likely drug interaction. PLAN OF TREATMENT: Continue diuretics. We will initially keep the patient in negative fluid balance. Further assessment by the Surgery for patient for the VATS procedure on the left side exploration for the pleural biopsy to help in determining the cause of the recurrent pleural fluid. It should also be followed up by the chemical pleurodesis if necessary with the VATS procedure. The patient will remain off the anticoagulation with Coumadin since the INR today was even noted elevated. The stopping of the anticoagulants will be necessary. The surgery would be planned for the patient to be done in the next few days. All other supportive therapy, plan of management and care. Usual medical management or therapy for this patient as well. The assessment and management were discussed with the primary care attending of this patient as [place], [place] REPORT OF CONSULTATION NAME: PETE BAUTISTA [facility] #: [id number] UNIT #: [id number] ROOM: [facility] DOCTOR: EARL SEPARS MD BIRTHDATE: [birth year] well as the surgeon for the patient in [facility] for the current procedure, which needs to be done on the left pleural space. The Coumadin would remain on hold for this patient to bring the INR to the therapeutic level because the surgical intervention will be done anyway. EARL ESCOBAR MD CM:CONSTR:REPORT OF CONSULTATION [id number] 09/04/17 1645 interface
--- NOTE | ~2017-09-03 | EKG ---
[place], [place] ELECTROCARDIOGRAM REPORT NAME: PETE BAUTISTA UNIT #: [id number] ROOM: 503 DOCTOR: VINI CONNOR MD BIRTHDATE: [birth year] DOS: 09/03/2017 TIME: 1821 hours. Underlying rhythm is atrial fibrillation with a ventricular rate of 55 beats per minute. Probable old anterior wall myocardial infarction. Lot of interference is seen in the limb leads and . An abnormal ECG. VINI CONNOR MD CM:EKGRPT:ELECTROCARDIOGRAM REPORT [id number] VINI CONNOR MD
[2017-09-03 15:54] VITALS: BP 146/69
[2017-09-03 16:37] LABS: BASO % 0.5 % (0.0-1.0); EOS # 0.2 10*3/uL (0.0-0.4); EOS % 2.3 % (1.0-4.0); HEMATOCRIT 35.7 % (37.0-47.0); HEMOGLOBIN 10.8 g/dl (12.0-16.0); LYMPH # 0.9 10*3/uL (1.3-4.4); LYMPH % 10.5 % (27.0-41.0); MEAN CELL VOLUME 87.7 fl (81.0-99.0); MEAN CORPUSCULAR HGB 26.5 pg (27.0-31.0); MEAN CORPUSCULAR HGB CONC 30.3 g/dl (33.0-37.0); MEAN PLATELET VOLUME 12.1 fl (9.6-12.3); MONO # 0.7 10*3/uL (0.1-1.0); MONO % 8.4 % (3.0-9.0); NEUT # 6.3 10*3/uL (2.3-7.9); NEUT % 78.1 % (47.0-73.0); PLATELET COUNT AUTOMATED 196 10*3/uL (130-400); RED BLOOD COUNT 4.07 10*6/uL (4.10-5.10); WHITE BLOOD COUNT 8.1 10*3/uL (4.8-10.8)
[2017-09-03 16:46] LABS: INTERNATIONAL NORM RATIO 4.3 (2.0-3.5)
[2017-09-03 16:53] LABS: ALBUMIN 3.1 gm/dl (3.1-4.5); ALKALINE PHOSPHATASE 80 U/L (45-117); BUN 24 mg/dl (7-24); CHLORIDE 102 mmol/L (98-107); CREATININE 0.76 mg/dL (0.55-1.02); POTASSIUM 3.7 mmol/L (3.5-5.1); SGOT/AST 17 IU/L (3-35); SGPT/ALT 14 U/L (12-78); SODIUM 138 mmol/L (136-145); TOTAL PROTEIN 6.7 gm/dL (6.4-8.2)
[2017-09-03 16:57] LABS: TROPONIN I < 0.015 ng/ml (<0.045)
[2017-09-03 18:51] VITALS: BP 136/67
[2017-09-03 20:00] VITALS: BP 118/86
[2017-09-03 22:06] LABS: BILIRUBIN NEGATIVE (NEGATIVE); BLOOD TRACE-INTACT (NEGATIVE); CLARITY CLEAR (CLEAR); COLOR YELLOW (YELLOW); GLUCOSE NEGATIVE (NEGATIVE); KETONE NEGATIVE (NEGATIVE); LEUKO ESTERASE NEGATIVE (NEGATIVE); NITRITE NEGATIVE (NEGATIVE); SPECIFIC GRAVITY <= 1.005 (1.005-1.030); UROBILINOGEN 0.2 E.U./dl (0.2-1.0)
[2017-09-03 22:13] LABS: EPITHELIAL CELLS 0-2; WBC 0-2 wbc/hpf (0-5)
[2017-09-03 22:14] LABS: RBC 0-2 rbc/hpf (0-2)
[2017-09-04] VITALS: BP 100/61
[2017-09-04 06:11] LABS: BASO % 0.5 % (0.0-1.0); EOS # 0.2 10*3/uL (0.0-0.4); EOS % 2.3 % (1.0-4.0); HEMATOCRIT 33.1 % (37.0-47.0); HEMOGLOBIN 10.3 g/dl (12.0-16.0); LYMPH # 0.8 10*3/uL (1.3-4.4); LYMPH % 10.4 % (27.0-41.0); MEAN CORPUSCULAR HGB 27.4 pg (27.0-31.0); MEAN CORPUSCULAR HGB CONC 31.1 g/dl (33.0-37.0); MEAN PLATELET VOLUME 12.2 fl (9.6-12.3); MONO # 0.8 10*3/uL (0.1-1.0); MONO % 9.7 % (3.0-9.0); NEUT % 76.6 % (47.0-73.0); PLATELET COUNT AUTOMATED 199 10*3/uL (130-400); RED BLOOD COUNT 3.76 10*6/uL (4.10-5.10); WHITE BLOOD COUNT 7.9 10*3/uL (4.8-10.8)
[2017-09-04 06:47] LABS: INTERNATIONAL NORM RATIO 4.1 (2.0-3.5)
[2017-09-04 06:49] LABS: ALBUMIN 2.9 gm/dl (3.1-4.5); ALKALINE PHOSPHATASE 68 U/L (45-117); BUN 23 mg/dl (7-24); CHLORIDE 103 mmol/L (98-107); CHOLESTEROL 90 mg/dL (<200); CREATININE 0.74 mg/dL (0.55-1.02); FREE T4 1.35 ng/dl (0.76-1.46); HDL CHOLESTEROL 52 mg/dl (40-60); LDL CHOLESTEROL 25 mg/dL (9-159); PHOSPHOROUS 3.8 mg/dL (2.5-4.9); POTASSIUM 3.2 mmol/L (3.5-5.1); SGOT/AST 13 IU/L (3-35); SGPT/ALT 13 U/L (12-78); SODIUM 143 mmol/L (136-145); TOTAL PROTEIN 6.1 gm/dL (6.4-8.2); TRIGLYCERIDES 67 mg/dl (<150); VLDL CHOLESTEROL 13 mg/dL (6-40)
[2017-09-04 06:53] LABS: THYROID STIM HORMONE (HS) 0.665 uIU/ml (0.358-4.75)
[2017-09-04 07:26] LABS: VITAMIN D, 25-HYDROXY 32.9 ng/mL (30-100)
[2017-09-04 08:00] VITALS: BP 145/93
[2017-09-04 12:00] VITALS: BP 118/69
[2017-09-04 16:00] VITALS: BP 124/74
== END 2017-09-04 16:00 | disposition short-term general hospital (02) | DRG 292 ==
LOC: ED 15:34 → 5E 17:47 → EDHOLD 17:47 → 5E 18:09
PROVIDERS: Hospitalist; Physician Assistant; ADMIT Internal Medicine
DX: I11.0 Hypertensive heart disease with heart failure (principal); J96.11 Chronic respiratory failure with hypoxia; J90 Pleural effusion, not elsewhere classified; E11.65 Type 2 diabetes mellitus with hyperglycemia; Z68.43 Body mass index [BMI] 50.0-59.9, adult; I50.33 Acute on chronic diastolic (congestive) heart failure; I48.0 Paroxysmal atrial fibrillation; E66.01 Morbid (severe) obesity due to excess calories; D64.9 Anemia, unspecified; E78.5 Hyperlipidemia, unspecified; K21.9 Gastro-esophageal reflux disease without esophagitis; E55.9 Vitamin D deficiency, unspecified; G47.33 Obstructive sleep apnea (adult) (pediatric); J43.9 Emphysema, unspecified; E78.00 Pure hypercholesterolemia, unspecified; Z88.8 Allergy status to other drugs, medicaments and biological substances; Z79.01 Long term (current) use of anticoagulants; Z79.82 Long term (current) use of aspirin; Z79.899 Other long term (current) drug therapy; Z90.49 Acquired absence of other specified parts of digestive tract; Z87.891 Personal history of nicotine dependence; Z99.81 Dependence on supplemental oxygen; Z83.3 Family history of diabetes mellitus; Z82.49 Family history of ischemic heart disease and other diseases of the circulatory system; Z83.6 Family history of other diseases of the respiratory system; Z82.5 Family history of asthma and other chronic lower respiratory diseases; Z87.01 Personal history of pneumonia (recurrent)

== ENCOUNTER → 2017-09-03 | Outpatient (CLI) | payer OTHER ==
[2017-09-03 10:55] LABS: BASO # 0.1 10*3/uL (0.0-0.1); BASO % 0.6 % (0.0-1.0); EOS # 0.2 10*3/uL (0.0-0.4); EOS % 2.3 % (1.0-4.0); HEMATOCRIT 39.2 % (37.0-47.0); HEMOGLOBIN 11.8 g/dl (12.0-16.0); LYMPH % 10.2 % (27.0-41.0); MEAN CELL VOLUME 88.5 fl (81.0-99.0); MEAN CORPUSCULAR HGB 26.6 pg (27.0-31.0); MEAN CORPUSCULAR HGB CONC 30.1 g/dl (33.0-37.0); MEAN PLATELET VOLUME 12.4 fl (9.6-12.3); MONO # 0.8 10*3/uL (0.1-1.0); MONO % 8.7 % (3.0-9.0); NEUT # 7.2 10*3/uL (2.3-7.9); NEUT % 77.8 % (47.0-73.0); PLATELET COUNT AUTOMATED 227 10*3/uL (130-400); RED BLOOD COUNT 4.43 10*6/uL (4.10-5.10); RED CELL DISTRI WIDTH 15.9 % (0-14.5); WHITE BLOOD COUNT 9.3 10*3/uL (4.8-10.8)
== END | disposition home or self-care (01) ==
LOC: LAB 10:33
PROVIDERS: Internal Medicine Hematology & Oncology
DX: M81.0 Age-related osteoporosis without current pathological fracture (principal); R79.89 Other specified abnormal findings of blood chemistry

== ENCOUNTER → 2017-09-17 | Outpatient (CLI) | payer OTHER ==
[2017-09-17 12:39] LABS: CREATININE 1.29 mg/dL (0.55-1.02)
== END | disposition home or self-care (01) ==
LOC: LAB 11:51
PROVIDERS: Internal Medicine Hematology & Oncology
DX: M81.0 Age-related osteoporosis without current pathological fracture (principal)

== ENCOUNTER → 2018-03-13 | Outpatient (CLI) | payer OTHER | END | disposition home or self-care (01) | LOC: RAD 16:37 | DX: J44.1 Chronic obstructive pulmonary disease with (acute) exacerbation (principal) ==

== ENCOUNTER 2018-08-18 12:53 | Emergency (ER) | payer OTHER ==
[~2018-08-18] VITALS: Ht 165.1 cm; Wt 178.7 kg
[2018-08-18 12:56] VITALS: BP 118/50
[2018-08-18] MEDS ORDERED: COZAAR25 M1 PO (13:13)
[2018-08-18] MEDS ORDERED: WAL-ZAN 150150 MG PO (13:14)
[2018-08-18] MEDS ORDERED: CEPHALEXIN500 M1 PO (15:02)
[2018-08-18] MEDS ORDERED: SEPTDS PO (15:02)
[2018-08-18 15:25] LABS: BILIRUBIN NEGATIVE (NEGATIVE); BLOOD 1+ (NEGATIVE); CLARITY CLEAR (CLEAR); COLOR YELLOW (YELLOW); GLUCOSE NEGATIVE (NEGATIVE); KETONE NEGATIVE (NEGATIVE); LEUKO ESTERASE 1+ (NEGATIVE); NITRITE POSITIVE (NEGATIVE); PH 5.5 (5.0-9.0); SPECIFIC GRAVITY 1.015 (1.005-1.030); UROBILINOGEN 0.2 E.U./dl (0.2-1.0)
[2018-08-18 15:42] LABS: BACTERIA 3+; WBC 16-20 wbc/hpf (0-5)
[2018-08-18 15:50] LABS: BASO # 0.1 10*3/uL (0.0-0.1); BASO % 0.5 % (0.0-1.0); EOS # 0.3 10*3/uL (0.0-0.4); EOS % 2.8 % (1.0-4.0); HEMATOCRIT 38.4 % (37.0-47.0); HEMOGLOBIN 11.9 g/dl (12.0-16.0); LYMPH % 10.6 % (27.0-41.0); MEAN CELL VOLUME 85.9 fl (81.0-99.0); MEAN CORPUSCULAR HGB 26.6 pg (27.0-31.0); MEAN PLATELET VOLUME 11.4 fl (9.6-12.3); MONO # 0.8 10*3/uL (0.1-1.0); MONO % 7.9 % (3.0-9.0); NEUT # 7.6 10*3/uL (2.3-7.9); PLATELET COUNT AUTOMATED 239 10*3/uL (130-400); RED BLOOD COUNT 4.47 10*6/uL (4.10-5.10); RED CELL DISTRI WIDTH 15.8 % (0-14.5); WHITE BLOOD COUNT 9.7 10*3/uL (4.8-10.8)
[2018-08-18 16:04] LABS: ALBUMIN 3.5 gm/dl (3.1-4.5); ALKALINE PHOSPHATASE 68 U/L (45-117); BUN 26 mg/dl (7-24); CHLORIDE 104 mmol/L (98-107); CREATININE 0.93 mg/dL (0.55-1.02); POTASSIUM 3.7 mmol/L (3.5-5.1); SGOT/AST 15 IU/L (3-35); SGPT/ALT 14 U/L (12-78); SODIUM 142 mmol/L (136-145); TOTAL PROTEIN 7.6 gm/dL (6.4-8.2)
[2018-08-18] MEDS ORDERED: Orphenadrine C100 MG PO (16:48)
[2018-08-18] MEDS ORDERED: PREDNISONE10 MG PO (16:48)
[2018-09-15] MEDS ORDERED: PAIN RELIEVER650 MG PO (20:01)
[2018-09-15] MEDS ORDERED: COUMADIN4 M2 PO (20:05)
[2018-09-15] MEDS ORDERED: LASIX40 MG PO (20:07)
[2018-09-15] MEDS ORDERED: METOPROLOL TART50 M1 PO (20:09)
[2018-09-15] MEDS ORDERED: CYCLOBENZAPRINE10 MG PO (20:11)
[2018-09-15] MEDS ORDERED: KLOR-CON M2020 ME1 PO (20:12)
[2018-09-18] MEDS ORDERED: METHOCARBAMOL750 M1 PO (13:52)
[2018-09-18] MEDS ORDERED: HYDROCODONE-AC1 EAC1 PO (13:52)
[2018-09-18] MEDS ORDERED: AMINOPHYLLIN200 MG PO (13:52)
[2018-09-18] MEDS ORDERED: COUMADIN3 M1 PO (14:00)
== END 2018-08-18 16:45 | disposition home or self-care (01) ==
LOC: ED 12:53
PROVIDERS: Nurse Practitioner
DX: L02.415 Cutaneous abscess of right lower limb (principal); L73.2 Hidradenitis suppurativa; M54.31 Sciatica, right side; N39.0 Urinary tract infection, site not specified

== ENCOUNTER → 2019-03-11 | Outpatient (CLI) | payer MEDICARE ==
[~2019-03-11] MED LIST changes: +AMINOPHYLLIN200 MG PO; +CEPHALEXIN500 M1 PO; +COUMADIN3 M1 PO; +COZAAR25 M1 PO; +CYCLOBENZAPRINE10 MG PO; +HYDROCODONE-AC1 EAC1 PO; +KLOR-CON M2020 ME1 PO; +METHOCARBAMOL750 M1 PO; +Orphenadrine C100 MG PO; +PAIN RELIEVER650 MG PO; +PREDNISONE10 MG PO; +SEPTDS PO; +WAL-ZAN 150150 MG PO
== END | disposition home or self-care (01) ==
LOC: LAB 09:10
DX: R10.13 Epigastric pain (principal); R11.0 Nausea; R42 Dizziness and giddiness; R51 Headache

== ENCOUNTER → 2019-06-04 | Outpatient (CLI) | payer MEDICARE | END | disposition home or self-care (01) | LOC: RAD 13:03 | DX: Z12.31 Encounter for screening mammogram for malignant neoplasm of breast (principal); Z13.820 Encounter for screening for osteoporosis; E55.9 Vitamin D deficiency, unspecified; Z78.0 Asymptomatic menopausal state ==

== ENCOUNTER → 2020-01-02 | Outpatient (CLI) | payer MEDICARE | END | disposition home or self-care (01) | LOC: US 07:55 | DX: I10 Essential (primary) hypertension (principal); Z01.419 Encounter for gynecological examination (general) (routine) without abnormal findings; Z11.59 Encounter for screening for other viral diseases; Z12.39 Encounter for other screening for malignant neoplasm of breast; Z79.51 Long term (current) use of inhaled steroids; Z87.891 Personal history of nicotine dependence ==

== ENCOUNTER → 2020-09-10 | Outpatient (CLI) | payer MEDICARE | END | disposition home or self-care (01) | LOC: COVID19 11:14 | PROVIDERS: ATTEND Nurse Practitioner Family | DX: Z20.828 Contact with and (suspected) exposure to other viral communicable diseases (principal) ==

== ENCOUNTER → 2021-02-14 | Outpatient (CLI) | payer MEDICARE | END | disposition home or self-care (01) | LOC: MAMMO 10:45 | PROVIDERS: ATTEND Nurse Practitioner Family | DX: Z12.31 Encounter for screening mammogram for malignant neoplasm of breast (principal); N64.89 Other specified disorders of breast ==

== ENCOUNTER → 2022-02-01 | Outpatient (CLI) | payer MEDICARE | END | disposition home or self-care (01) | LOC: RAD 07:45 | PROVIDERS: ATTEND Nurse Practitioner Family | DX: M17.0 Bilateral primary osteoarthritis of knee (principal) ==

== ENCOUNTER → 2022-04-14 | Outpatient (CLI) | payer OTHER ==
[~2022-04-14] MED LIST changes: +ELIQUIS5 M1 PO; +ZITHROMAX TRI-500 M1 PO
== END | disposition home or self-care (01) ==
LOC: RAD 10:54
PROVIDERS: ATTEND Nurse Practitioner Family
DX: J44.1 Chronic obstructive pulmonary disease with (acute) exacerbation (principal)

== ENCOUNTER → 2022-09-14 | Outpatient (CLI) | payer OTHER ==
[2022-09-14 07:35] LABS: BASO # 0.1 10*3/uL (0.0-0.1); BASO % 0.9 % (0.0-1.0); EOS # 0.2 10*3/uL (0.0-0.4); EOS % 2.9 % (1.0-4.0); HEMATOCRIT 36.3 % (37.0-47.0); LYMPH # 0.7 10*3/uL (1.3-4.4); LYMPH % 10.6 % (27.0-41.0); MEAN CELL VOLUME 81.4 fl (81.0-99.0); MEAN CORPUSCULAR HGB 24.7 pg (27.0-31.0); MEAN CORPUSCULAR HGB CONC 30.3 g/dl (33.0-37.0); MEAN PLATELET VOLUME 11.5 fl (9.6-12.3); MONO % 14.5 % (3.0-9.0); NEUT # 4.7 10*3/uL (2.3-7.9); NEUT % 70.9 % (47.0-73.0); PLATELET COUNT AUTOMATED 220 10*3/uL (130-400); RED BLOOD COUNT 4.46 10*6/uL (4.10-5.10); RED CELL DISTRI WIDTH 15.3 % (0-14.5); WHITE BLOOD COUNT 6.6 10*3/uL (4.8-10.8)
[2022-09-14 08:05] LABS: ALKALINE PHOSPHATASE 97 U/L (45-117); BUN 17 mg/dl (7-24); CHLORIDE 105 mmol/L (98-107); CHOLESTEROL 108 mg/dL (<200); CREATININE 0.81 mg/dL (0.55-1.02); LDL CHOLESTEROL 43 mg/dL (9-159); POTASSIUM 3.8 mmol/L (3.5-5.1); SGOT/AST 16 IU/L (3-35); SGPT/ALT 14 U/L (12-78); SODIUM 138 mmol/L (136-145); TOTAL PROTEIN 7.2 gm/dL (6.4-8.2); TRIGLYCERIDES 53 mg/dl (<150)
[2022-09-15 10:06] LABS: CREATININE,URINE 58.1 mg/dL (Not Estab.)
== END | disposition home or self-care (01) ==
LOC: LAB 00:18
PROVIDERS: ATTEND Nurse Practitioner Family
DX: E11.65 Type 2 diabetes mellitus with hyperglycemia (principal); E78.5 Hyperlipidemia, unspecified; D64.9 Anemia, unspecified; I10 Essential (primary) hypertension

== ENCOUNTER → 2022-09-21 | Outpatient (CLI) | payer OTHER | END | disposition home or self-care (01) | LOC: RAD 11:12 | PROVIDERS: ATTEND Nurse Practitioner Family | DX: J44.9 Chronic obstructive pulmonary disease, unspecified (principal); R09.81 Nasal congestion; R11.2 Nausea with vomiting, unspecified; M51.37 Other intervertebral disc degeneration, lumbosacral region ==

== ENCOUNTER → 2023-01-01 | Outpatient (CLI) | payer OTHER ==
[2023-01-01 08:30] LABS: HEMATOCRIT 34.9 % (37.0-47.0); MEAN CORPUSCULAR HGB 24.8 pg (27.0-31.0); MEAN CORPUSCULAR HGB CONC 30.7 g/dl (33.0-37.0); MEAN PLATELET VOLUME 12.3 fl (9.6-12.3); PLATELET COUNT AUTOMATED 195 10*3/uL (130-400); RED BLOOD COUNT 4.31 10*6/uL (4.10-5.10); RED CELL DISTRI WIDTH 16.5 % (0-14.5); WHITE BLOOD COUNT 4.5 10*3/uL (4.8-10.8)
[2023-01-01 08:32] LABS: MANUAL DIFF REFLEX YES
[2023-01-01 08:47] LABS: ALKALINE PHOSPHATASE 78 U/L (46-116); BUN 16 mg/dl (9-23); CHLORIDE 105 mmol/L (98-107); CHOLESTEROL 103 mg/dL (<200); LDL CHOLESTEROL 48 mg/dL (9-159); SGPT/ALT 16 U/L (10-49); TOTAL PROTEIN 6.5 gm/dL (6.0-8.0); TRIGLYCERIDES 50 mg/dl (<150)
[2023-01-01 09:07] LABS: BASOPHILS 2 % (0-1); BURR CELLS FEW; OVALOCYTES FEW; PLATELET SUFFICIENCY NORMAL (NORMAL); POLYCHROMASIA SLIGHT; TOTAL CELLS COUNTED 100 #CELLS
== END | disposition home or self-care (01) ==
LOC: LAB 07:21
PROVIDERS: ATTEND Nurse Practitioner Family
DX: E11.69 Type 2 diabetes mellitus with other specified complication (principal); I10 Essential (primary) hypertension; E78.5 Hyperlipidemia, unspecified; D64.9 Anemia, unspecified

== ENCOUNTER 2023-01-06 15:33 | Emergency (ER) | payer OTHER ==
[~2023-01-06] VITALS: Ht 162.6 cm; Wt 129.3 kg
[2023-01-06 15:44] VITALS: BP 171/88
[2023-01-06 16:02] LABS: HEMATOCRIT 35.5 % (37.0-47.0); MEAN CELL VOLUME 81.4 fl (81.0-99.0); MEAN CORPUSCULAR HGB 24.5 pg (27.0-31.0); MEAN CORPUSCULAR HGB CONC 30.1 g/dl (33.0-37.0); MEAN PLATELET VOLUME 11.2 fl (9.6-12.3); PLATELET COUNT AUTOMATED 201 10*3/uL (130-400); RED BLOOD COUNT 4.36 10*6/uL (4.10-5.10); RED CELL DISTRI WIDTH 16.6 % (0-14.5)
[2023-01-06 16:03] LABS: MANUAL DIFF REFLEX YES
[2023-01-06 16:16] LABS: ALKALINE PHOSPHATASE 91 U/L (46-116); BUN 14 mg/dl (9-23); CHLORIDE 103 mmol/L (98-107); POTASSIUM 4.3 mmol/L (3.4-5.1); SGPT/ALT 10 U/L (10-49); TOTAL PROTEIN 6.5 gm/dL (6.0-8.0)
[2023-01-06 16:17] LABS: BILIRUBIN Negative (Negative); BLOOD 1+ (Negative); CLARITY Clear (Clear); COLOR Yellow (Yellow); GLUCOSE Negative (Negative); KETONE Negative (Negative); LEUKO ESTERASE 1+ (Negative); NITRITE Positive (Negative); SPECIFIC GRAVITY 1.015 (1.001-1.030)
[2023-01-06 16:36] LABS: ATYPICAL LYMPHS 4 % (0-0); BASOPHILS 1 % (0-1); PLATELET SUFFICIENCY NORMAL (NORMAL); TOTAL CELLS COUNTED 100 #CELLS
[2023-01-06 16:37] LABS: BURR CELLS FEW
[2023-01-06 17:04] LABS: BACTERIA TRACE
== END 2023-01-06 20:15 | disposition home or self-care (01) ==
LOC: ED 15:33
PROVIDERS: Nurse Practitioner Family
DX: K74.60 Unspecified cirrhosis of liver (principal); K62.5 Hemorrhage of anus and rectum; E11.9 Type 2 diabetes mellitus without complications; J44.9 Chronic obstructive pulmonary disease, unspecified; I10 Essential (primary) hypertension; I48.91 Unspecified atrial fibrillation; M19.90 Unspecified osteoarthritis, unspecified site; Z88.5 Allergy status to narcotic agent; Z90.49 Acquired absence of other specified parts of digestive tract; Z98.890 Other specified postprocedural states; Z87.891 Personal history of nicotine dependence; Z79.899 Other long term (current) drug therapy

== ENCOUNTER → 2023-02-01 | Day surgery (SDC) | payer OTHER ==
[~2023-02-01] VITALS: Ht 160 cm; Wt 126.1 kg
[~2023-02-01] MED LIST changes: +PROTONIX40 MG PO
[2023-02-01 10:17] VITALS: BP 180/71
[2023-02-01 11:07] VITALS: BP 145/74
[2023-02-01 11:22] VITALS: BP 145/74; BP 173/91
[2023-02-01 11:37] VITALS: BP 171/79
[2023-02-01 13:48] VITALS: BP 145/74
== END | disposition home or self-care (01) ==
LOC: SDC 01-29 14:00
PROVIDERS: ATTEND Surgery
DX: K62.5 Hemorrhage of anus and rectum (principal); K57.30 Diverticulosis of large intestine without perforation or abscess without bleeding; K28.9 Gastrojejunal ulcer, unspecified as acute or chronic, without hemorrhage or perforation; I10 Essential (primary) hypertension; E11.9 Type 2 diabetes mellitus without complications; J44.9 Chronic obstructive pulmonary disease, unspecified; I48.91 Unspecified atrial fibrillation; Z98.84 Bariatric surgery status; M81.0 Age-related osteoporosis without current pathological fracture; F32.A Depression, unspecified; Z87.891 Personal history of nicotine dependence; Z88.5 Allergy status to narcotic agent

== ENCOUNTER → 2023-04-25 | Outpatient (CLI) | payer OTHER | END | disposition home or self-care (01) | LOC: RAD 10:47 | PROVIDERS: ATTEND Nurse Practitioner Family | DX: J44.1 Chronic obstructive pulmonary disease with (acute) exacerbation (principal); J18.9 Pneumonia, unspecified organism ==

== ENCOUNTER 2023-05-10 13:23 | Emergency (ER) | payer OTHER ==
[2023-05-10 13:26] VITALS: BP 146/67
[2023-05-10] MEDS ORDERED: TRAMADOL HCL50 MG PO (16:00)
== END 2023-05-10 16:05 | disposition home or self-care (01) ==
LOC: ED 13:23
DX: S20.212A Contusion of left front wall of thorax, initial encounter (principal); J44.9 Chronic obstructive pulmonary disease, unspecified; E11.9 Type 2 diabetes mellitus without complications; I11.0 Hypertensive heart disease with heart failure; I50.9 Heart failure, unspecified; Z88.6 Allergy status to analgesic agent; Z79.2 Long term (current) use of antibiotics; Z79.899 Other long term (current) drug therapy; Z79.82 Long term (current) use of aspirin; Z98.890 Other specified postprocedural states; Z90.49 Acquired absence of other specified parts of digestive tract; Z87.891 Personal history of nicotine dependence; M19.90 Unspecified osteoarthritis, unspecified site; W18.09XA Striking against other object with subsequent fall, initial encounter; Y93.89 Activity, other specified; Y92.89 Other specified places as the place of occurrence of the external cause; Y99.8 Other external cause status

== ENCOUNTER → 2023-06-05 | Outpatient (CLI) | payer OTHER ==
[2023-06-05 15:29] LABS: BASO % 0.5 % (0.0-1.0); EOS # 0.1 10*3/uL (0.0-0.4); EOS % 1.8 % (1.0-4.0); HEMATOCRIT 34.1 % (37.0-47.0); LYMPH # 0.8 10*3/uL (1.3-4.4); LYMPH % 13.2 % (27.0-41.0); MEAN CORPUSCULAR HGB 24.6 pg (27.0-31.0); MEAN CORPUSCULAR HGB CONC 29.3 g/dl (33.0-37.0); MEAN PLATELET VOLUME 10.8 fl (9.6-12.3); MONO # 0.7 10*3/uL (0.1-1.0); MONO % 10.8 % (3.0-9.0); NEUT # 4.5 10*3/uL (2.3-7.9); NEUT % 73.5 % (47.0-73.0); PLATELET COUNT AUTOMATED 245 10*3/uL (130-400); RED BLOOD COUNT 4.06 10*6/uL (4.10-5.10); RED CELL DISTRI WIDTH 16.4 % (0-14.5); WHITE BLOOD COUNT 6.1 10*3/uL (4.8-10.8)
== END | disposition home or self-care (01) ==
LOC: LAB 15:08
PROVIDERS: Nurse Practitioner Family; ATTEND Internal Medicine Critical Care Medicine
DX: J44.9 Chronic obstructive pulmonary disease, unspecified (principal); G47.33 Obstructive sleep apnea (adult) (pediatric); D64.9 Anemia, unspecified; J45.40 Moderate persistent asthma, uncomplicated; G25.81 Restless legs syndrome; J30.89 Other allergic rhinitis; Z87.891 Personal history of nicotine dependence; Z68.41 Body mass index [BMI] 40.0-44.9, adult; Z91.198 Patient's noncompliance with other medical treatment and regimen for other reason

== ENCOUNTER → 2024-01-05 | Outpatient (CLI) | payer OTHER ==
[2024-01-05 08:00] LABS: BASO % 0.6 % (0.0-1.0); EOS # 0.2 10*3/uL (0.0-0.4); EOS % 2.4 % (1.0-4.0); HEMATOCRIT 41.5 % (37.0-47.0); LYMPH # 0.6 10*3/uL (1.3-4.4); LYMPH % 9.2 % (27.0-41.0); MEAN CELL VOLUME 97.2 fl (81.0-99.0); MEAN CORPUSCULAR HGB 29.7 pg (27.0-31.0); MEAN CORPUSCULAR HGB CONC 30.6 g/dl (33.0-37.0); MEAN PLATELET VOLUME 11.4 fl (9.6-12.3); MONO # 0.8 10*3/uL (0.1-1.0); MONO % 11.9 % (3.0-9.0); NEUT % 75.7 % (47.0-73.0); PLATELET COUNT AUTOMATED 165 10*3/uL (130-400); RED BLOOD COUNT 4.27 10*6/uL (4.10-5.10); RED CELL DISTRI WIDTH 14.1 % (0-14.5); WHITE BLOOD COUNT 6.6 10*3/uL (4.8-10.8)
[2024-01-05 08:26] LABS: ALKALINE PHOSPHATASE 79 U/L (46-116); BUN 12 mg/dl (9-23); CHLORIDE 105 mmol/L (98-107); CHOLESTEROL 125 mg/dL (<200); LDL CHOLESTEROL 53 mg/dL (9-159); POTASSIUM 4.1 mmol/L (3.4-5.1); SGPT/ALT 12 U/L (5-49); TRIGLYCERIDES 50 mg/dl (<150)
== END | disposition home or self-care (01) ==
LOC: LAB 07:41
PROVIDERS: ATTEND Nurse Practitioner Family
DX: E11.69 Type 2 diabetes mellitus with other specified complication (principal); E66.9 Obesity, unspecified; E55.9 Vitamin D deficiency, unspecified; I10 Essential (primary) hypertension

== ENCOUNTER → 2024-03-05 | Outpatient (CLI) | payer OTHER | END | disposition home or self-care (01) | LOC: LAB 18:20 | PROVIDERS: ATTEND Nurse Practitioner Family | DX: R32 Unspecified urinary incontinence (principal) ==

== ENCOUNTER → 2024-03-15 | Outpatient (CLI) | payer OTHER | END | disposition home or self-care (01) | LOC: LAB 08:50 | PROVIDERS: ATTEND Nurse Practitioner Family | DX: R30.0 Dysuria (principal) ==

== ENCOUNTER 2024-05-01 13:33 | Inpatient (IN) | payer OTHER ==
[2024-05-01] VITALS (9 sets, daily range): BP systolic 105–127; BP diastolic 48–70
[~2024-05-01] VITALS: Ht 165.1 cm; Wt 120.8 kg
[2024-05-01 14:00] LABS: HEMATOCRIT 40.4 % (37.0-47.0); MEAN CELL VOLUME 96.2 fl (81.0-99.0); MEAN CORPUSCULAR HGB CONC 31.2 g/dl (33.0-37.0); MEAN PLATELET VOLUME 11.5 fl (9.6-12.3); PLATELET COUNT AUTOMATED 192 10*3/uL (130-400); RED CELL DISTRI WIDTH 14.8 % (0-14.5); WHITE BLOOD COUNT 16.2 10*3/uL (4.8-10.8)
[2024-05-01 14:01] LABS: MANUAL DIFF REFLEX YES
[2024-05-01 14:10] LABS: ACT PARTIAL THROMBO TIME 32.3 SECONDS (20.0-32.1)
[2024-05-01] MEDS ORDERED: methylPREDNISolone sod succ 125 MG VIAL IV ONE (14:15)
[2024-05-01] MEDS ORDERED: Albuterol Sulfate 2.5 MG/3 ML VIAL NEB ONE (14:15)
[2024-05-01 14:20] LABS: BURR CELLS FEW; PLATELET SUFFICIENCY NORMAL (NORMAL); TOTAL CELLS COUNTED 100 #CELLS
[2024-05-01 14:23] LABS: ALKALINE PHOSPHATASE 76 U/L (46-116); BUN 13 mg/dl (9-23); CHLORIDE 101 mmol/L (98-107); POTASSIUM 3.7 mmol/L (3.4-5.1); SGPT/ALT 15 U/L (5-49); TOTAL PROTEIN 6.9 gm/dL (6.0-8.0)
[2024-05-01] MEDS ORDERED: MAGNESIUM SULFATE 50 ML IV ONE (14:35)
[2024-05-01] MEDS ORDERED: SODIUM CHLORIDE 0.9% 500 ML IV ONE (14:40)
[2024-05-01 15:13] LABS: ABG BASE EXCESS -0.6 mmol/L (-2.0-2.0); ARTERIAL BLOOD GAS PH 7.448 (7.35-7.45)
[2024-05-01 15:28] LABS: BILIRUBIN 2+ (Negative); BLOOD Trace-Lysed (Negative); CLARITY Cloudy (Clear); COLOR Dark Yellow (Yellow); GLUCOSE Negative (Negative); KETONE 1+ (Negative); LEUKO ESTERASE 2+ (Negative); NITRITE Negative (Negative); SPECIFIC GRAVITY 1.025 (1.001-1.030)
[2024-05-01] MEDS ORDERED: FUROSEMIDE 20 MG/2 ML VIAL IV ONE (15:40)
[2024-05-01 15:45] LABS: BACTERIA 3+; EPITHELIAL CELLS 51-100; RBC 0-2 rbc/hpf (0-2); WBC 51-100 wbc/hpf (0-5)
[2024-05-01] MEDS ORDERED: Ceftriaxone Sodium 1 GM/10 ML SYR IV ONE (15:50)
[2024-05-01] MEDS ORDERED: Doxycycline Hyclate 100 MG CAP PO ONE (16:10)
[2024-05-01] MEDS ORDERED: BISACODYL 10 MG SUPP R PRN (16:25)
[2024-05-01] MEDS ORDERED: ACETAMINOPHEN 650 MG SUPP R PRN (16:25)
[2024-05-01] MEDS ORDERED: BISACODYL 5 MG TAB PO PRN (16:25)
[2024-05-01] MEDS ORDERED: Magnesium Hydroxide 30 ML UDC PO PRN (16:25)
[2024-05-01] MEDS ORDERED: ACETAMINOPHEN 325 MG TAB PO PRN (16:25)
[2024-05-01] MEDS ORDERED: DEXTROSE 10 % IN WATER 250 ML IV PRN (17:55)
[2024-05-01] MEDS ORDERED: FUROSEMIDE 40 MG/4 ML VIAL IV SCH (18:00)
[2024-05-01] MEDS ORDERED: Acetaminophen/Hydrocodone 5 MG/325 MG TABLET PO PRN (18:10)
[2024-05-01] MEDS ORDERED: Cetirizine Hydrochloride 10 MG TAB PO SCH (20:00)
[2024-05-01] MEDS ORDERED: INSULIN LISPRO 1 UNIT/0.01 ML SQ SCH (22:00)
[2024-05-01] MEDS ORDERED: APIXABAN 5 MG TAB PO SCH (22:00)
[2024-05-01] MEDS ORDERED: ASPIRIN, CHEWABLE 81 MG TAB PO SCH (22:00)
[2024-05-02] VITALS (10 sets, daily range): BP systolic 92–149; BP diastolic 45–62
[2024-05-02 04:27] LABS: BASO % 0.1 % (0.0-1.0); HEMATOCRIT 38.2 % (37.0-47.0); LYMPH # 0.6 10*3/uL (1.3-4.4); LYMPH % 4.9 % (27.0-41.0); MEAN CELL VOLUME 94.8 fl (81.0-99.0); MEAN CORPUSCULAR HGB 30.5 pg (27.0-31.0); MEAN CORPUSCULAR HGB CONC 32.2 g/dl (33.0-37.0); MEAN PLATELET VOLUME 11.8 fl (9.6-12.3); MONO # 0.5 10*3/uL (0.1-1.0); MONO % 4.6 % (3.0-9.0); NEUT # 10.2 10*3/uL (2.3-7.9); NEUT % 89.8 % (47.0-73.0); PLATELET COUNT AUTOMATED 173 10*3/uL (130-400); RED BLOOD COUNT 4.03 10*6/uL (4.10-5.10); RED CELL DISTRI WIDTH 14.7 % (0-14.5); WHITE BLOOD COUNT 11.3 10*3/uL (4.8-10.8)
[2024-05-02 04:39] LABS: ACT PARTIAL THROMBO TIME 30.9 SECONDS (20.0-32.1)
[2024-05-02 04:53] LABS: ALKALINE PHOSPHATASE 70 U/L (46-116); BUN 19 mg/dl (9-23); CHLORIDE 102 mmol/L (98-107); CHOLESTEROL 105 mg/dL (<200); LDL CHOLESTEROL 44 mg/dL (9-159); POTASSIUM 3.3 mmol/L (3.4-5.1); SGPT/ALT 14 U/L (5-49); TOTAL PROTEIN 6.5 gm/dL (6.0-8.0); TRIGLYCERIDES 48 mg/dl (<150)
[2024-05-02] MEDS ORDERED: Pantoprazole Sodium 40 MG TAB PO SCH (06:00)
[2024-05-02] MEDS ORDERED: Doxycycline Hyclate 100 MG in SODIUM CHLORIDE 0.9% 250 ML IV SCH (06:00)
[2024-05-02] MEDS ORDERED: POTASSIUM CHLORIDE 20 MEQ TAB PO ONE (07:05)
[2024-05-02] MEDS ORDERED: LIDOCAINE 1 EA PATCH T ONE (09:05)
[2024-05-02] MEDS ORDERED: SILVER SULFADIAZINE 25 GM TUBE T ONE (09:05)
[2024-05-02] MEDS ORDERED: DILTIAZEM CD 240 MG CAP PO SCH (10:00)
[2024-05-02] MEDS ORDERED: Metoprolol Tartrate 25 MG TAB PO SCH (10:00)
[2024-05-02] MEDS ORDERED: HCTZ/Triamter 37.5/25 MG TAB PO SCH (10:00)
[2024-05-02] MEDS ORDERED: CALCIUM CARBONATE/VITAMIN D3 500 MG/200 IU TABLET PO SCH (10:00)
[2024-05-02] MEDS ORDERED: DICLOFENAC SODIUM 100 GM TUBE T SCH (10:00)
[2024-05-02] MEDS ORDERED: Ceftriaxone Sodium 1 GM,IV 1 EA in SYRINGE INFUSION 10 ML IV SCH (16:00)
[2024-05-02] MEDS ORDERED: GUAIFENESIN 600 MG TAB ER PO SCH (22:00)
[2024-05-03] VITALS: BP 102/52
[2024-05-03 05:20] LABS: CHLORIDE 101 mmol/L (98-107); POTASSIUM 3.4 mmol/L (3.4-5.1)
[2024-05-03 05:30] LABS: BUN 35 mg/dl (9-23)
[2024-05-03 06:12] LABS: BASO % 0.1 % (0.0-1.0); EOS % 0.2 % (1.0-4.0); LYMPH # 1.1 10*3/uL (1.3-4.4); LYMPH % 9.8 % (27.0-41.0); MEAN CELL VOLUME 95.5 fl (81.0-99.0); MEAN CORPUSCULAR HGB 29.9 pg (27.0-31.0); MEAN CORPUSCULAR HGB CONC 31.3 g/dl (33.0-37.0); MEAN PLATELET VOLUME 12.5 fl (9.6-12.3); MONO % 8.9 % (3.0-9.0); NEUT # 8.8 10*3/uL (2.3-7.9); NEUT % 80.5 % (47.0-73.0); PLATELET COUNT AUTOMATED 213 10*3/uL (130-400); RED BLOOD COUNT 3.98 10*6/uL (4.10-5.10); RED CELL DISTRI WIDTH 14.7 % (0-14.5)
[2024-05-03 08:00] VITALS: BP 107/59
[2024-05-03] MEDS ORDERED: POTASSIUM CHLORIDE 20 MEQ TAB PO ONE (08:20)
[2024-05-03 12:00] VITALS: BP 84/40
[2024-05-03 13:00] VITALS: BP 106/60
[2024-05-03 16:00] VITALS: BP 107/62
[2024-05-03 20:13] VITALS: BP 123/57
[2024-05-04 00:34] VITALS: BP 123/56
[2024-05-04 06:44] LABS: BASO % 0.4 % (0.0-1.0); EOS # 0.1 10*3/uL (0.0-0.4); EOS % 0.8 % (1.0-4.0); HEMATOCRIT 37.7 % (37.0-47.0); LYMPH # 0.9 10*3/uL (1.3-4.4); LYMPH % 11.3 % (27.0-41.0); MEAN CELL VOLUME 95.4 fl (81.0-99.0); MEAN CORPUSCULAR HGB 30.1 pg (27.0-31.0); MEAN CORPUSCULAR HGB CONC 31.6 g/dl (33.0-37.0); MEAN PLATELET VOLUME 11.7 fl (9.6-12.3); MONO # 0.9 10*3/uL (0.1-1.0); MONO % 11.3 % (3.0-9.0); NEUT % 75.6 % (47.0-73.0); PLATELET COUNT AUTOMATED 229 10*3/uL (130-400); RED BLOOD COUNT 3.95 10*6/uL (4.10-5.10); RED CELL DISTRI WIDTH 14.5 % (0-14.5); WHITE BLOOD COUNT 7.9 10*3/uL (4.8-10.8)
[2024-05-04 07:19] LABS: BUN 32 mg/dl (9-23); CHLORIDE 102 mmol/L (98-107); POTASSIUM 3.6 mmol/L (3.4-5.1)
[2024-05-04 08:00] VITALS: BP 121/54
[2024-05-04] MEDS ORDERED: SPIRONOLACTONE 25 MG TAB PO SCH (10:50)
[2024-05-04] MEDS ORDERED: FUROSEMIDE 40 MG/4 ML VIAL IV SCH (10:50)
[2024-05-04 12:00] VITALS: BP 120/42
[2024-05-04 16:00] VITALS: BP 118/53
[2024-05-04 20:00] VITALS: BP 141/73
[2024-05-04] MEDS ORDERED: METOPROLOL SUCCINATE XR 25 MG TAB PO SCH (22:00)
[2024-05-05] VITALS: BP 126/70
[2024-05-05 06:35] LABS: BUN 24 mg/dl (9-23); CHLORIDE 101 mmol/L (98-107); POTASSIUM 3.5 mmol/L (3.4-5.1)
[2024-05-05 06:46] LABS: BASO % 0.5 % (0.0-1.0); EOS # 0.1 10*3/uL (0.0-0.4); EOS % 1.5 % (1.0-4.0); HEMATOCRIT 38.1 % (37.0-47.0); LYMPH # 0.9 10*3/uL (1.3-4.4); LYMPH % 14.8 % (27.0-41.0); MEAN CELL VOLUME 93.6 fl (81.0-99.0); MEAN CORPUSCULAR HGB 30.2 pg (27.0-31.0); MEAN CORPUSCULAR HGB CONC 32.3 g/dl (33.0-37.0); MEAN PLATELET VOLUME 12.1 fl (9.6-12.3); MONO # 0.8 10*3/uL (0.1-1.0); MONO % 13.3 % (3.0-9.0); NEUT # 4.2 10*3/uL (2.3-7.9); NEUT % 69.4 % (47.0-73.0); PLATELET COUNT AUTOMATED 239 10*3/uL (130-400); RED BLOOD COUNT 4.07 10*6/uL (4.10-5.10); RED CELL DISTRI WIDTH 14.3 % (0-14.5)
[2024-05-05 08:00] VITALS: BP 137/65
[2024-05-05 12:00] VITALS: BP 118/58
[2024-05-05] MEDS ORDERED: METOPROLOL SUCCINATE XR 25 MG TAB PO SCH (14:30)
[2024-05-05 16:00] VITALS: BP 113/58
[2024-05-05 20:00] VITALS: BP 116/49
[2024-05-06] VITALS: BP 103/59
[2024-05-06] MEDS ORDERED: FOAM BANDAGE 5X5 T ONE (05:42)
[2024-05-06 06:54] LABS: BASO % 0.4 % (0.0-1.0); EOS # 0.3 10*3/uL (0.0-0.4); EOS % 3.5 % (1.0-4.0); HEMATOCRIT 37.1 % (37.0-47.0); MEAN CELL VOLUME 95.6 fl (81.0-99.0); MEAN CORPUSCULAR HGB 29.9 pg (27.0-31.0); MEAN CORPUSCULAR HGB CONC 31.3 g/dl (33.0-37.0); MEAN PLATELET VOLUME 12.1 fl (9.6-12.3); MONO % 14.5 % (3.0-9.0); NEUT # 4.8 10*3/uL (2.3-7.9); NEUT % 67.2 % (47.0-73.0); PLATELET COUNT AUTOMATED 232 10*3/uL (130-400); RED BLOOD COUNT 3.88 10*6/uL (4.10-5.10); RED CELL DISTRI WIDTH 13.9 % (0-14.5); WHITE BLOOD COUNT 7.1 10*3/uL (4.8-10.8)
[2024-05-06 07:12] LABS: BUN 18 mg/dl (9-23); CHLORIDE 101 mmol/L (98-107)
[2024-05-06 08:00] VITALS: BP 135/73
[2024-05-06] MEDS ORDERED: POTASSIUM CHLORIDE 20 MEQ TAB PO ONE ×2 (08:10→10:40)
[2024-05-06] MEDS ORDERED: SPIRONOLACTONE 25 MG TAB PO SCH (10:00)
[2024-05-06] MEDS ORDERED: FUROSEMIDE 20 MG TAB PO SCH (10:00)
[2024-05-06 12:00] VITALS: BP 121/51
[2024-05-06] MEDS ORDERED: ALDACTONE25 MG PO (12:10)
[2024-05-06] MEDS ORDERED: FUROSEMIDE20 M1 PO (12:10)
[2024-05-06] MEDS ORDERED: METOPROLOL SUCC25 M2 PO (12:10)
[2024-05-06] MEDS ORDERED: OMNICEF300 MG PO (12:11)
== END 2024-05-06 13:11 | disposition home health service (06) | DRG 871 ==
LOC: ED 13:33 → EDHOLD 16:17 → 4E 16:17
PROVIDERS: Emergency Medicine; Nurse Practitioner; Student in an Organized Health Care Education/Training Program; ADMIT Family Medicine; ATTEND Family Medicine
PROC: 5A09357 Assistance with Respiratory Ventilation, Less than 24 Consecutive Hours, Continuous Positive Airway Pressure (ICD-10-PCS; principal; 2024-05-01)
PROC: 5A09357 Assistance with Respiratory Ventilation, Less than 24 Consecutive Hours, Continuous Positive Airway Pressure (ICD-10-PCS; 2024-05-02)
PROC: 5A09357 Assistance with Respiratory Ventilation, Less than 24 Consecutive Hours, Continuous Positive Airway Pressure (ICD-10-PCS; 2024-05-03)
PROC: 5A09357 Assistance with Respiratory Ventilation, Less than 24 Consecutive Hours, Continuous Positive Airway Pressure (ICD-10-PCS; 2024-05-06)
DX: A41.9 Sepsis, unspecified organism (principal); I50.33 Acute on chronic diastolic (congestive) heart failure; J15.69 Pneumonia due to other Gram-negative bacteria; J96.21 Acute and chronic respiratory failure with hypoxia; E87.1 Hypo-osmolality and hyponatremia; J44.1 Chronic obstructive pulmonary disease with (acute) exacerbation; J44.0 Chronic obstructive pulmonary disease with (acute) lower respiratory infection; I48.21 Permanent atrial fibrillation; Z68.42 Body mass index [BMI] 45.0-49.9, adult; Z68.41 Body mass index [BMI] 40.0-44.9, adult; N39.0 Urinary tract infection, site not specified; K21.9 Gastro-esophageal reflux disease without esophagitis; I87.2 Venous insufficiency (chronic) (peripheral); E83.42 Hypomagnesemia; E66.01 Morbid (severe) obesity due to excess calories; E87.6 Hypokalemia; I95.9 Hypotension, unspecified; E78.5 Hyperlipidemia, unspecified; I08.2 Rheumatic disorders of both aortic and tricuspid valves; D64.9 Anemia, unspecified; R65.20 Severe sepsis without septic shock; I27.20 Pulmonary hypertension, unspecified; I49.3 Ventricular premature depolarization; G47.33 Obstructive sleep apnea (adult) (pediatric); I11.0 Hypertensive heart disease with heart failure; E11.65 Type 2 diabetes mellitus with hyperglycemia; Z99.81 Dependence on supplemental oxygen; Z87.891 Personal history of nicotine dependence; Z90.49 Acquired absence of other specified parts of digestive tract; Z83.3 Family history of diabetes mellitus; Z82.5 Family history of asthma and other chronic lower respiratory diseases; Z82.49 Family history of ischemic heart disease and other diseases of the circulatory system; Z88.5 Allergy status to narcotic agent; Z79.1 Long term (current) use of non-steroidal anti-inflammatories (NSAID); Z79.899 Other long term (current) drug therapy; Z79.51 Long term (current) use of inhaled steroids; Z79.82 Long term (current) use of aspirin

== ENCOUNTER → 2024-05-27 | Outpatient (CLI) | payer OTHER ==
[~2024-05-27] MED LIST changes: +ALDACTONE25 MG PO; +FUROSEMIDE20 M1 PO; +METOPROLOL SUCC25 M2 PO; +OMNICEF300 MG PO
[2024-05-27 08:05] LABS: BASO % 0.5 % (0.0-1.0); EOS # 0.2 10*3/uL (0.0-0.4); EOS % 3.6 % (1.0-4.0); HEMATOCRIT 37.5 % (37.0-47.0); LYMPH # 0.6 10*3/uL (1.3-4.4); LYMPH % 10.7 % (27.0-41.0); MEAN CELL VOLUME 96.9 fl (81.0-99.0); MEAN CORPUSCULAR HGB 30.7 pg (27.0-31.0); MEAN CORPUSCULAR HGB CONC 31.7 g/dl (33.0-37.0); MEAN PLATELET VOLUME 11.7 fl (9.6-12.3); MONO # 0.7 10*3/uL (0.1-1.0); MONO % 12.5 % (3.0-9.0); NEUT % 72.5 % (47.0-73.0); PLATELET COUNT AUTOMATED 186 10*3/uL (130-400); RED BLOOD COUNT 3.87 10*6/uL (4.10-5.10); RED CELL DISTRI WIDTH 14.9 % (0-14.5); WHITE BLOOD COUNT 5.5 10*3/uL (4.8-10.8)
[2024-05-27 09:11] LABS: ALKALINE PHOSPHATASE 81 U/L (46-116); BUN 13 mg/dl (9-23); CHLORIDE 108 mmol/L (98-107); CHOLESTEROL 123 mg/dL (<200); LDL CHOLESTEROL 60 mg/dL (9-159); POTASSIUM 3.9 mmol/L (3.4-5.1); SGPT/ALT 9 U/L (5-49); TOTAL PROTEIN 6.6 gm/dL (6.0-8.0); TRIGLYCERIDES 65 mg/dl (<150)
== END | disposition home or self-care (01) ==
LOC: LAB 07:31
PROVIDERS: ATTEND Nurse Practitioner Family
DX: J44.9 Chronic obstructive pulmonary disease, unspecified (principal); I11.9 Hypertensive heart disease without heart failure; E78.5 Hyperlipidemia, unspecified; D64.9 Anemia, unspecified; E55.9 Vitamin D deficiency, unspecified; E11.65 Type 2 diabetes mellitus with hyperglycemia; J18.9 Pneumonia, unspecified organism

== ENCOUNTER → 2025-01-30 | Outpatient (CLI) | payer OTHER ==
[2025-01-30 17:36] LABS: BILIRUBIN Negative (Negative); BLOOD Trace-Lysed (Negative); CLARITY Cloudy (Clear); COLOR Yellow (Yellow); GLUCOSE Negative (Negative); KETONE Negative (Negative); LEUKO ESTERASE 2+ (Negative); NITRITE Positive (Negative); PH 5.5 (4.5-8.0)
[2025-01-30 17:52] LABS: BACTERIA 4+; WBC 21-30 wbc/hpf (0-5)
== END | disposition home or self-care (01) ==
LOC: LAB 15:07
PROVIDERS: ATTEND Nurse Practitioner Family
DX: R30.0 Dysuria (principal)

== ENCOUNTER → 2025-03-13 | Outpatient (CLI) | payer OTHER ==
[2025-03-13 12:14] LABS: BASO % 0.5 % (0.0-1.0); EOS # 0.2 10*3/uL (0.0-0.4); EOS % 2.7 % (1.0-4.0); HEMATOCRIT 39.3 % (37.0-47.0); MEAN CELL VOLUME 97.5 fl (81.0-99.0); MEAN CORPUSCULAR HGB 30.3 pg (27.0-31.0); MEAN PLATELET VOLUME 12.2 fl (9.6-12.3); MONO # 0.7 10*3/uL (0.1-1.0); NEUT % 72.4 % (47.0-73.0); PLATELET COUNT AUTOMATED 182 10*3/uL (130-400); RED BLOOD COUNT 4.03 10*6/uL (4.10-5.10); RED CELL DISTRI WIDTH 13.2 % (0-14.5); WHITE BLOOD COUNT 5.6 10*3/uL (4.8-10.8)
[2025-03-13 12:27] LABS: ALKALINE PHOSPHATASE 80 U/L (46-116); BUN 22 mg/dl (9-23); CHLORIDE 104 mmol/L (98-107); CHOLESTEROL 120 mg/dL (<200); LDL CHOLESTEROL 53 mg/dL (9-159); SGPT/ALT 11 U/L (5-49); TOTAL PROTEIN 6.8 gm/dL (6.0-8.0); TRIGLYCERIDES 69 mg/dl (<150)
== END | disposition home or self-care (01) ==
LOC: RHCWE 08:41
PROVIDERS: ATTEND Nurse Practitioner Family
DX: I10 Essential (primary) hypertension (principal); E11.9 Type 2 diabetes mellitus without complications; I48.20 Chronic atrial fibrillation, unspecified; J44.0 Chronic obstructive pulmonary disease with (acute) lower respiratory infection; R32 Unspecified urinary incontinence; D64.9 Anemia, unspecified; E55.9 Vitamin D deficiency, unspecified; Z76.89 Persons encountering health services in other specified circumstances

== ENCOUNTER → 2025-03-21 | Outpatient (CLI) | payer OTHER | END | disposition home or self-care (01) | LOC: RAD 09:31 | PROVIDERS: ATTEND Nurse Practitioner Family | DX: M19.011 Primary osteoarthritis, right shoulder (principal); M75.101 Unspecified rotator cuff tear or rupture of right shoulder, not specified as traumatic; M25.511 Pain in right shoulder ==

== ENCOUNTER → 2025-08-07 | Outpatient (CLI) | payer OTHER ==
[2025-08-07 17:57] LABS: BASO # 0.1 10*3/uL (0.0-0.1); BASO % 0.7 % (0.0-1.0); EOS # 0.1 10*3/uL (0.0-0.4); EOS % 1.6 % (1.0-4.0); MEAN CELL VOLUME 97.5 fl (81.0-99.0); MEAN CORPUSCULAR HGB 30.0 pg (27.0-31.0); MEAN PLATELET VOLUME 12.5 fl (9.6-12.3); MONO # 0.7 10*3/uL (0.1-1.0); MONO % 10.4 % (3.0-9.0); NEUT # 5.3 10*3/uL (2.3-7.9); NEUT % 78.5 % (47.0-73.0); NUCLEATED RED BLOOD CELL 0.0 % (0.0-0.0); NUCLEATED RED BLOOD CELL 0.0 10*3/uL (0.0-0.0); PLATELET COUNT AUTOMATED 181 10*3/uL (130-400); RED CELL DISTRI WIDTH 14.0 % (0-14.5)
[2025-08-07 18:13] LABS: BUN 19 mg/dl (9-23); SGPT/ALT 11 U/L (5-49)
== END | disposition home or self-care (01) ==
LOC: LAB 09:26 → RHCWE 09:26
PROVIDERS: ATTEND Nurse Practitioner Family
DX: I10 Essential (primary) hypertension (principal); I48.20 Chronic atrial fibrillation, unspecified; J44.9 Chronic obstructive pulmonary disease, unspecified; E11.9 Type 2 diabetes mellitus without complications; E55.9 Vitamin D deficiency, unspecified; M25.511 Pain in right shoulder; Z00.00 Encounter for general adult medical examination without abnormal findings; Z12.31 Encounter for screening mammogram for malignant neoplasm of breast; Z13.820 Encounter for screening for osteoporosis

== ENCOUNTER → 2025-08-31 | Outpatient (CLI) | payer OTHER | END | disposition home or self-care (01) | LOC: RAD 09:19 | PROVIDERS: ATTEND Nurse Practitioner Family | DX: M81.0 Age-related osteoporosis without current pathological fracture (principal); M85.88 Other specified disorders of bone density and structure, other site ==